=== PATIENT | female | born 1985 | race American Indian/Alaskan Native ===

== ENCOUNTER 2018-07-29 23:10 | Emergency (ER) | payer MEDICAID ==
[2018-07-29 23:53] VITALS: BP 133/89
[2018-07-30] MEDS ORDERED: TRIMOX PO ONE (01:01)
[2018-07-30] MEDS ORDERED: ULTRAM PO ONE (01:01)
--- NOTE | 2018-07-30 01:07 | Emergency Department Report ---
ED ENT HPI - General Chief complaint: Dental/Oral Stated complaint: TOOTH PAIN Time Seen by Provider: 07/30/18 00:58 Source: patient Mode of arrival: Ambulatory Limitations: No Limitations - History of Present Illness Initial comments: Patient's 33-year-old female presents with dental caries acute on chronic complains of 5/ 10 to take for the last 3 days as doing, 1 week from now there is no facial swelling or gum swelling no difficulty eating and throat ear pain symptoms are exacerbated by cold stimuli symptoms are relieved by Ultram/ ibuprofen complaint: tooth pain Onset/Timin -: days(s) Location: tooth # (10) Severity: moderate Severity scale (0 -10): 5 Quality: aching Consistency: constant Improves with: none Worsens with: eating, other (hot and cold stimuli ) Context- Dental: history of dental caries, poor dental care Associated Symptoms: toothache - Related Data Home Medications Medication Instructions Recorded Confirmed Last Taken oxyCODONE /ACETAMINOPHEN [Percocet 2 tab PO TID PRN 11/29/15 11/29/15 11/28/15 5/325] 2330 traMADol [Ultram] 50 mg PO TID PRN 11/29/15 11/29/15 11/28/15 2330 Previous Rx's Medication Instructions Recorded Last Taken Type Amoxicillin [Trimox CAP] 500 mg PO Q8H 10 Days #30 capsule 07/30/18 Unknown Rx Chlorhexidine Mouthwash [Peridex] 15 ml MM BID #1 bottle 07/30/18 Unknown Rx traMADol [Ultram] 50 mg PO Q6HR PRN #12 tablet 07/30/18 Unknown Rx Allergies Allergy/AdvReac Type Severity Reaction Status Date / Time sulfamethoxazole AdvReac Unknown Verified 10/31/15 23:01 [From Bactrim] trimethoprim [From Bactrim] AdvReac Unknown Verified 10/31/15 23:01 ED Dental HPI - General Chief complaint: Dental/Oral Stated complaint: TOOTH PAIN Time Seen by Provider: 07/30/18 00:58 Source: patient Mode of arrival: Ambulatory Limitations: No Limitations - Related Data Home Medications Medication Instructions Recorded Confirmed Last Taken oxyCODONE /ACETAMINOPHEN [Percocet 2 tab PO TID PRN 11/29/15 11/29/15 11/28/15 5/325] 2330 traMADol [Ultram] 50 mg PO TID PRN 05/24/16 05/24/16 05/23/16 2330 Previous Rx's Medication Instructions Recorded Last Taken Type Amoxicillin [Trimox CAP] 500 mg PO Q8H 10 Days #30 capsule 07/30/18 Unknown Rx Chlorhexidine Mouthwash [Peridex] 15 ml MM BID #1 bottle 07/30/18 Unknown Rx traMADol [Ultram] 50 mg PO Q6HR PRN #12 tablet 07/30/18 Unknown Rx Allergies Allergy/AdvReac Type Severity Reaction Status Date / Time sulfamethoxazole AdvReac Unknown Verified 10/31/15 23:01 [From Bactrim] trimethoprim [From Bactrim] AdvReac Unknown Verified 10/31/15 23:01 ED Review of Systems ROS: Stated complaint: TOOTH PAIN Other details as noted in HPI Constitutional: denies: chills, fever Eyes: denies: eye pain, eye discharge, vision change ENT: dental pain Respiratory: denies: cough, shortness of breath, wheezing Cardiovascular: denies: chest pain, palpitations Endocrine: no symptoms reported Gastrointestinal: denies: abdominal pain, nausea, diarrhea Genitourinary: denies: urgency, dysuria, discharge Musculoskeletal: denies: back pain, joint swelling, arthralgia Skin: denies: rash, lesions Neurological: denies: headache, weakness, paresthesias Psychiatric: denies: anxiety, depression Hematological/Lymphatic: denies: easy bleeding, easy bruising ED Past Medical Hx - Past Medical History Hx Hypertension: No Hx Diabetes: No Hx Deep Vein Thrombosis: No Hx Renal Disease: No Hx Sickle Cell Disease: No Hx Seizures: Yes (a couple of years ago) Hx Psychiatric Treatment: Yes (ANXIETY) Hx Asthma: No Hx HIV: No Additional medical history: endometriosis, ovarian cysts, fibroids - Surgical History Additional Surgical History: uterine laproscopy - Social History Smoking Status: Former Smoker - Medications Home Medications: Home Medications Medication Instructions Recorded Confirmed Last Taken Type oxyCODONE /ACETAMINOPHEN [Percocet 2 tab PO TID PRN 11/29/15 11/29/15 11/28/15 History 5/325] 2330 traMADol [Ultram] 50 mg PO TID PRN 11/29/15 11/29/15 11/28/15 History 2330 Amoxicillin [Trimox CAP] 500 mg PO Q8H 10 Days #30 capsule 07/30/18 Unknown Rx Chlorhexidine Mouthwash [Peridex] 15 ml MM BID #1 bottle 07/30/18 Unknown Rx traMADol [Ultram] 50 mg PO Q6HR PRN #12 tablet 07/30/18 Unknown Rx ED Physical Exam - General Limitations: No Limitations General appearance: alert, in no apparent distress - Head Head exam: Present: atraumatic, normocephalic - Eye Eye exam: Present: normal appearance - ENT ENT exam: Present: mucous membranes moist, TM's normal bilaterally, normal external ear exam - Expanded ENT Exam Expanded Ear exam: Present: normal external inspection Mouth exam: Absent: trismus Teeth exam: Present: dental caries, dental tenderness # (10) Throat exam: Positive: normal inspection, other (uvula midline no swelling no stridor ). Negative: tonsillar erythema, tonsillomegaly, tonsillar exudate, R peritonsillar mass, L peritonsillar mass - Neck Neck exam: Present: normal inspection, full ROM. Absent: tenderness, meningismus, lymphadenopathy, thyromegaly - Respiratory Respiratory exam: Present: normal lung sounds bilaterally. Absent: respiratory distress, wheezes, stridor, chest wall tenderness - Cardiovascular Cardiovascular Exam: Present: regular rate, normal rhythm. Absent: systolic murmur, diastolic murmur, rubs, gallop - GI/Abdominal GI/Abdominal exam: Present: soft, normal bowel sounds. Absent: tenderness, rigid, bruit, hernia - Rectal Rectal exam: Present: deferred - Extremities Exam Extremities exam: Present: normal inspection - Back Exam Back exam: Present: normal inspection, full ROM - Neurological Exam Neurological exam: Present: alert, oriented X3, normal gait - Psychiatric Psychiatric exam: Present: normal affect, normal mood - Skin Skin exam: Present: warm, dry, intact, normal color. Absent: rash ED Course Vital Signs 07/29/18 07/30/18 23:51 00:26 Temperature 98.1 F 98.7 F Pulse Rate 84 80 Respiratory 16 18 Rate Blood Pressure 133/89 133/89 O2 Sat by Pulse 100 99 Oximetry ED Medical Decision Making - Medical Decision Making these are infected dental carries no trismus no facial or gum swelling no fever or chills no throat or ear pain plan: peridex, amoxicillin, ultram follow up with dentist in 2-3 days, pt verbalized agreement and understanding of discharge plan. Critical care attestation.: If time is entered above; I have spent that time in minutes in the direct care of this critically ill patient, excluding procedure time. ED Disposition Clinical Impression: Infected dental caries Disposition: DC-01 TO HOME OR SELFCARE Is pt being admited?: No Does the pt Need Aspirin: No Condition: Stable Instructions: Dental Caries (ED) Prescriptions: Amoxicillin [Trimox CAP] 500 mg PO Q8H 10 Days #30 capsule Chlorhexidine Mouthwash [Peridex] 15 ml MM BID #1 bottle traMADol [Ultram] 50 mg PO Q6HR PRN #12 tablet PRN Reason: Pain Referrals: [facility] [Outside] - 3-5 Days Forms: Work/School Release Form(ED) Time of Disposition: 01:09
== END 2018-07-30 01:19 | disposition home or self-care (01) ==
LOC: ED 23:10
DX: K02.9 Dental caries, unspecified (principal); Z87.891 Personal history of nicotine dependence
CPT/HCPCS: 99282

== ENCOUNTER 2018-08-25 22:30 | Emergency (ER) | payer MEDICAID ==
--- NOTE | 2018-08-26 00:42 | XRay Report ---
FINAL REPORT PROCEDURE: XR TOE(S) 2+V LT TECHNIQUE: LEFT 5th toe radiographs, including AP, oblique and lateral views. HISTORY: pain COMPARISON: No prior studies are available for comparison. FINDINGS: Fracture(s) and/or Dislocation(s): There is a fracture of the midportion of the 5th proximal phalanx. Joint space(s): Normal. Soft tissues: There is soft tissue swelling of the 5th digit. Bone mineralization: Normal. Foreign bodies: None. IMPRESSION: Fracture of the 5th proximal phalanx. There is no joint dislocation. There is soft tissue swelling of the 5th digit.
[2018-08-26 01:28] LABS: Bacteria,Urine 2+ /HPF (Negative); Bilirubin,Urine NEG (Negative); Blood,Urine NEG (Negative); Color,Urine Yellow (Yellow); Hyaline Casts,Urine 1 /LPF; Mucus,Urine FEW /HPF; Urobilinogen,Urine < 2.0 mg/dL (<2.0)
[2018-08-26 01:30] LABS: HCG Qualitative,Urine Negative (Negative)
[2018-08-26 01:31] LABS: Amorphous Crystals,Urine 1+
--- NOTE | 2018-08-26 01:48 | Emergency Department Report ---
ED Lower Extremity HPI - General Chief Complaint: Extremity Injury, Lower Stated Complaint: L FOOT PAIN Source: patient Mode of arrival: Ambulatory Limitations: No Limitations - History of Present Illness Initial Comments: This is a 33-year-old -Turkish female who presents with pain to left fifth digit from a injury while at home today. Patient states she accidentally hit her toe against a metal bed rail this morning. She is now complaining of sharp pain with movement and weightbearing. She is currently taking Motrin with no improvement of symptoms. Patient is also requesting STD screening and. She reports vaginal discharge for 2 days. States she had intercourse with her partner one week ago. She denies vaginal bleeding, frequency, urgency, dysuria, paresthesia, pelvic pain, or low back pain, weakness, numbness or tingling. MD Complaint: foot injury (left fifth proximal digit) -: This morning Injury: Toes: Left, Right (fifth proximal ) Type of Injury: blunt Place: home Severity: severe Severity scale (0 -10): 10 Improves With: rest Worsens With: weight bearing, movement, palpation Context: direct blow Associated Symptoms: able to partially bear weight, ambulatory Treatments Prior to Arrival: cold therapy, NSAIDS - Related Data Home Medications Medication Instructions Recorded Confirmed Last Taken oxyCODONE /ACETAMINOPHEN [Percocet 2 tab PO TID PRN 11/29/15 11/29/15 11/28/15 5/325] 2330 traMADol [Ultram] 50 mg PO TID PRN 11/29/15 11/29/15 11/28/15 2330 Previous Rx's Medication Instructions Recorded Last Taken Type Amoxicillin [Trimox CAP] 500 mg PO Q8H 10 Days #30 capsule 07/30/18 Unknown Rx Chlorhexidine Mouthwash [Peridex] 15 ml MM BID #1 bottle 07/30/18 Unknown Rx traMADol [Ultram] 50 mg PO Q6HR PRN #12 tablet 07/30/18 Unknown Rx Ibuprofen [Motrin 800 MG tab] 800 mg PO Q8HR PRN #15 tablet 08/26/18 Unknown Rx metroNIDAZOLE [Metronidazole] 500 mg PO BID #14 tablet 08/26/18 Unknown Rx Allergies Allergy/AdvReac Type Severity Reaction Status Date / Time sulfamethoxazole AdvReac Unknown Verified 10/31/15 23:01 [From Bactrim] trimethoprim [From Bactrim] AdvReac Unknown Verified 10/31/15 23:01 ED Review of Systems ROS: Stated complaint: L FOOT PAIN Other details as noted in HPI Constitutional: denies: chills, fever Respiratory: denies: cough, shortness of breath, wheezing Cardiovascular: denies: chest pain, palpitations Gastrointestinal: denies: abdominal pain, nausea, diarrhea Genitourinary: discharge. denies: urgency, dysuria Musculoskeletal: arthralgia (5th digit pain). denies: back pain, joint swelling Skin: denies: rash, lesions Neurological: denies: headache, weakness, paresthesias Psychiatric: denies: anxiety, depression ED Past Medical Hx - Past Medical History Previous Medical History?: Yes Hx Hypertension: No Hx Diabetes: No Hx Deep Vein Thrombosis: No Hx Renal Disease: No Hx Sickle Cell Disease: No Hx Seizures: Yes (a couple of years ago) Hx Psychiatric Treatment: Yes (ANXIETY) Hx Asthma: No Hx HIV: No Additional medical history: endometriosis, ovarian cysts, fibroids - Surgical History Past Surgical History?: Yes Additional Surgical History: uterine laproscopy, tubal ligation - Social History Smoking Status: Never Smoker Substance Use Type: None - Medications Home Medications: Home Medications Medication Instructions Recorded Confirmed Last Taken Type oxyCODONE /ACETAMINOPHEN [Percocet 2 tab PO TID PRN 11/29/15 11/29/15 11/28/15 History 5/325] 2330 traMADol [Ultram] 50 mg PO TID PRN 11/29/15 11/29/15 11/28/15 History 2330 Amoxicillin [Trimox CAP] 500 mg PO Q8H 10 Days #30 capsule 07/30/18 Unknown Rx Chlorhexidine Mouthwash [Peridex] 15 ml MM BID #1 bottle 07/30/18 Unknown Rx traMADol [Ultram] 50 mg PO Q6HR PRN #12 tablet 07/30/18 Unknown Rx Ibuprofen [Motrin 800 MG tab] 800 mg PO Q8HR PRN #15 tablet 08/26/18 Unknown Rx metroNIDAZOLE [Metronidazole] 500 mg PO BID #14 tablet 08/26/18 Unknown Rx ED Physical Exam - General Limitations: No Limitations General appearance: alert, in no apparent distress - Respiratory Respiratory exam: Present: normal lung sounds bilaterally. Absent: respiratory distress - Cardiovascular Cardiovascular Exam: Present: regular rate, normal rhythm. Absent: systolic murmur, diastolic murmur, rubs, gallop - GI/Abdominal GI/Abdominal exam: Present: soft, normal bowel sounds - Expanded Lower Extremity Exam Left Hip exam: Present: normal inspection, full ROM Upper Leg exam: Present: normal inspection, full ROM Knee exam: Present: normal inspection, full ROM Lower Leg exam: Present: normal inspection, full ROM Ankle exam: Present: normal inspection, full ROM Foot/Toe exam: Present: normal inspection, tenderness, tenderness at base of 5th metatarsal. Absent: full ROM, swelling, abrasion, laceration, ecchymosis, deformity, crepidus, dislocation, erythema, amputation, puncture wound, foreign body, calcaneal tenderness Neuro vascular tendon exam: Present: no vascular compromise Gait: Positive: observed and limited by pain - Neurological Exam Neurological exam: Present: alert, oriented X3, normal gait - Psychiatric Psychiatric exam: Present: normal affect, normal mood - Skin Skin exam: Present: warm, dry, intact, normal color. Absent: rash ED Course Vital Signs 08/25/18 08/26/18 23:48 02:01 Temperature 98.4 F 98.7 F Pulse Rate 77 75 Respiratory 18 16 Rate Blood Pressure 159/103 Blood Pressure 125/91 [Left] O2 Sat by Pulse 100 99 Oximetry ED Lower Extremity MDM - Radiology Data Radiology results: report reviewed X-ray of left toes impression: Fracture of fifth proximal phalanx. There is no joint dislocation. There is soft tissue swelling of the fifth digit. - Medical Decision Making Patient was examined by me. Vitals are normal and patient is in no acute distress. Obtained a urinalysis, urine hCG, an x-ray of the left toes. Fracture of fifth proximal phalanx. There is no joint dislocation. There is soft tissue swelling of the fifth digit. Patient informed of results. A postop shoe was applied to left foot. Start ibuprofen for pain. Review of the [place] [employer] and patient recently received tramadol RX on 08/23/18, 08/18/18, & 08/15/18. The following message found on website: Please note that this person has received controlled substances prescriptions written by 22 prescribers and had them filled at 13 pharmacies during the past 3 months.This equals or exceeds the threshold of 5 prescribers and 5 pharmacies and while there may be a valid reason for this, it also may be indicative of the practice of prescriber and pharmacy shopping. Patient was empirically treated for STD exposure with Rocephin and azithromycin. Start metronidazole 500 mg by mouth twice a day 7 days. Referral to orthopedic surgeon for continued care. Plan discussed with patient to discharge home and treat outpatient. He agrees with ER plan. Patient discharged home in stable condition. Follow up with PCP in 2-3 days. Critical care attestation.: If time is entered above; I have spent that time in minutes in the direct care of this critically ill patient, excluding procedure time. ED Disposition Clinical Impression: Pain in toe of left foot, STD exposure Fracture of toe of left foot Qualifiers: Encounter type: initial encounter Toe: lesser toe Fracture type: closed Phalanx: proximal Fracture alignment: nondisplaced Qualified Code(s): S92.515A - Nondisplaced fracture of proximal phalanx of left lesser toe(s), initial encounter for closed fracture Disposition: TO HOME OR SELFCARE Is pt being admited?: No Does the pt Need Aspirin: No Condition: Stable Instructions: Sexually Transmitted Diseases (ED), Safe Sex (ED), Toe Fracture (ED), Arthralgia (ED) Additional Instructions: Avoid weight bearing to left lower extremity. Take pain medication every 6-8 hours as needed for pain. Follow-up with the orthopedic surgeon from referrals in 2-3 days. Follow up with [facility] for for STD screening. Avoid drinking alcohol while taking antibiotics and for 24 hours after completion. Continue safe sexual intercourse. Follow up with Primary Care Provider or health department. Prescriptions: Ibuprofen [Motrin 800 MG tab] 800 mg PO Q8HR PRN #15 tablet PRN Reason: Pain , Severe (7-10) metroNIDAZOLE [Metronidazole] 500 mg PO BID #14 tablet Referrals: BRIJESH MARTINS MD [Primary Care Provider] - 3-5 Days KIRIT GALICIA MD [Staff Physician] - 3-5 Days [facility] [Outside] - 3-5 Days Time of Disposition: 02:04
[2018-08-26] MEDS ORDERED: ROCEPHIN IM ONE (01:54)
[2018-08-26] MEDS ORDERED: XYLOCAINE 1% MPF 5 mL INFILTRATI ONE (01:54)
[2018-08-26] MEDS ORDERED: ZITHROMAX PO ONE (01:54)
[2018-08-26] MEDS ORDERED: IBUPROFEN PO ONE ×2 (01:57→01:59)
[2018-08-26] MEDS ORDERED: ROCEPHIN ONE (01:57)
[2018-08-26] MEDS ORDERED: TYLENOL ONE (01:57)
[2018-08-26] MEDS ORDERED: TYLENOL PO ONE (01:59)
[2018-08-26 02:02] VITALS: BP 125/91
== END 2018-08-26 02:52 | disposition home or self-care (01) ==
LOC: ED 22:30
DX: S92.515A Nondisplaced fracture of proximal phalanx of left lesser toe(s), initial encounter for closed fracture (principal); Z20.2 Contact with and (suspected) exposure to infections with a predominantly sexual mode of transmission; F41.9 Anxiety disorder, unspecified; Z88.2 Allergy status to sulfonamides; W22.8XXA Striking against or struck by other objects, initial encounter; Y93.89 Activity, other specified; Y99.8 Other external cause status; Y92.89 Other specified places as the place of occurrence of the external cause
CPT/HCPCS: 73660; 81001; 81025; 96372; 99284; J0696

== ENCOUNTER 2018-09-22 23:34 | Emergency (ER) | payer MEDICAID ==
[2018-09-23 01:01] VITALS: BP 130/71
[2018-09-23] MEDS ORDERED: ULTRAM PO ONE (05:28)
--- NOTE | 2018-09-23 05:34 | Emergency Department Report ---
ED Lower Extremity HPI - General Chief Complaint: Fall Stated Complaint: LOWER BACK PAIN/LEFT FOOT PAIN FROM FALL Time Seen by Provider: 09/23/18 05:28 Source: patient Mode of arrival: Ambulatory Limitations: No Limitations - History of Present Illness Initial Comments: Patient is a 33-year-old -[place] female who presents with a metatarsal fracture 3 weeks ago presents today for related pain the same as she is out of pain medication and will not have reduction for another week this followed by ambulance orthopedic services could not get an appointment has been no new fall or injury or trauma pain is described as for routine aching exacerbated by prolonged standing or walking patient is mature to ED tonight with regular she is not using orthopedic shoe MD Complaint: foot injury Onset/Timin -: week(s) Injury: Foot: Left Type of Injury: blunt Place: home Severity: moderate Severity scale (0 -10): 5 Improves With: nothing Worsens With: weight bearing, movement, palpation Context: fall Associated Symptoms: tingling, ambulatory - Related Data Home Medications Medication Instructions Recorded Confirmed Last Taken oxyCODONE /ACETAMINOPHEN [Percocet 2 tab PO TID PRN 11/29/15 11/29/15 11/28/15 5/325] 2330 traMADol [Ultram] 50 mg PO TID PRN 11/29/15 11/29/15 11/28/15 2330 Previous Rx's Medication Instructions Recorded Last Taken Type Amoxicillin [Trimox CAP] 500 mg PO Q8H 10 Days #30 capsule 07/30/18 Unknown Rx Chlorhexidine Mouthwash [Peridex] 15 ml MM BID #1 bottle 07/30/18 Unknown Rx traMADol [Ultram] 50 mg PO Q6HR PRN #12 tablet 07/30/18 Unknown Rx Ibuprofen [Motrin 800 MG tab] 800 mg PO Q8HR PRN #15 tablet 08/26/18 Unknown Rx metroNIDAZOLE [Metronidazole] 500 mg PO BID #14 tablet 08/26/18 Unknown Rx Tramadol HCl [Ultram] 50 mg PO Q6H PRN #12 tablet 09/23/18 Unknown Rx Allergies Allergy/AdvReac Type Severity Reaction Status Date / Time sulfamethoxazole AdvReac Vomiting Verified 09/22/18 23:38 [From Bactrim] trimethoprim [From Bactrim] AdvReac Vomiting Verified 09/22/18 23:38 ED Review of Systems ROS: Stated complaint: LOWER BACK PAIN/LEFT FOOT PAIN FROM FALL Other details as noted in HPI Constitutional: denies: chills, fever Eyes: denies: eye pain, eye discharge, vision change ENT: denies: ear pain, throat pain Respiratory: denies: cough, shortness of breath, wheezing Cardiovascular: denies: chest pain, palpitations Endocrine: no symptoms reported Gastrointestinal: denies: abdominal pain, nausea, diarrhea Genitourinary: denies: urgency, dysuria, discharge Musculoskeletal: joint swelling. denies: back pain, arthralgia Skin: denies: rash, lesions Neurological: denies: headache, weakness, paresthesias Psychiatric: denies: anxiety, depression Hematological/Lymphatic: denies: easy bleeding, easy bruising ED Past Medical Hx - Past Medical History Previous Medical History?: Yes Hx Hypertension: No Hx Diabetes: No Hx Deep Vein Thrombosis: No Hx Renal Disease: No Hx Sickle Cell Disease: No Hx Seizures: Yes (a couple of years ago) Hx Psychiatric Treatment: Yes (ANXIETY) Hx Asthma: No Hx HIV: No Additional medical history: endometriosis, ovarian cysts, fibroids, mass to buttocks - Surgical History Past Surgical History?: Yes Additional Surgical History: uterine laproscopy, tubal ligation. x2 - Social History Smoking Status: Never Smoker Substance Use Type: None - Medications Home Medications: Home Medications Medication Instructions Recorded Confirmed Last Taken Type oxyCODONE /ACETAMINOPHEN [Percocet 2 tab PO TID PRN 11/29/15 11/29/15 11/28/15 History 5/325] 2330 traMADol [Ultram] 50 mg PO TID PRN 11/29/15 11/29/15 11/28/15 History 2330 Amoxicillin [Trimox CAP] 500 mg PO Q8H 10 Days #30 capsule 07/30/18 Unknown Rx Chlorhexidine Mouthwash [Peridex] 15 ml MM BID #1 bottle 07/30/18 Unknown Rx traMADol [Ultram] 50 mg PO Q6HR PRN #12 tablet 07/30/18 Unknown Rx Ibuprofen [Motrin 800 MG tab] 800 mg PO Q8HR PRN #15 tablet 08/26/18 Unknown Rx metroNIDAZOLE [Metronidazole] 500 mg PO BID #14 tablet 08/26/18 Unknown Rx Tramadol HCl [Ultram] 50 mg PO Q6H PRN #12 tablet 09/23/18 Unknown Rx ED Physical Exam - General Limitations: No Limitations General appearance: alert, in no apparent distress - Head Head exam: Present: atraumatic, normocephalic - Eye Eye exam: Present: normal appearance - ENT ENT exam: Present: mucous membranes moist - Respiratory Respiratory exam: Present: normal lung sounds bilaterally, wheezes. Absent: respiratory distress, stridor, chest wall tenderness - Cardiovascular Cardiovascular Exam: Present: regular rate, normal rhythm. Absent: systolic murmur, diastolic murmur, rubs, gallop - GI/Abdominal GI/Abdominal exam: Present: soft, normal bowel sounds - Rectal Rectal exam: Present: deferred - Extremities Exam Extremities exam: Present: normal inspection, tenderness, normal capillary refill. Absent: pedal edema, joint swelling, calf tenderness - Expanded Lower Extremity Exam Left Foot/Toe exam: Present: full ROM, tenderness. Absent: swelling, abrasion, laceration, ecchymosis, deformity, crepidus, dislocation, erythema, amputation, puncture wound, foreign body, calcaneal tenderness, tenderness at base of 5th metatarsal, nail avulsion, subungual hematoma Neuro vascular tendon exam: Present: abnormal cap refill Gait: Positive: observed and normal - Back Exam Back exam: Present: normal inspection, full ROM. Absent: tenderness, CVA tenderness (R), CVA tenderness (L), muscle spasm, paraspinal tenderness, vertebral tenderness, rash noted - Neurological Exam Neurological exam: Present: alert, oriented X3, CN II-XII intact, normal gait, reflexes normal - Psychiatric Psychiatric exam: Present: normal affect, normal mood - Skin Skin exam: Present: warm, dry, intact, normal color. Absent: rash ED Course Vital Signs 09/23/18 01:00 Temperature 98.7 F Pulse Rate 85 Respiratory 18 Rate Blood Pressure 130/71 O2 Sat by Pulse 97 Oximetry ED Lower Extremity MDM - Medical Decision Making Patient significant pain medication on and under fluoroscopy, there is no abnormality patient's relative steady gait short-term burst of tramadol patient will follow up with the surgery next week for repair as directed patient verbalized agreement and understanding of discharge plan DC'd home in stable condition at this time Critical care attestation.: If time is entered above; I have spent that time in minutes in the direct care of this critically ill patient, excluding procedure time. ED Disposition Clinical Impression: Foot pain Qualifiers: Laterality: left Qualified Code(s): M79.672 - Pain in left foot Disposition: DC-01 TO HOME OR SELFCARE Is pt being admited?: No Does the pt Need Aspirin: No Condition: Stable Additional Instructions: follow up with [facility] as scheduled next week , return to ed if symptoms worsen Prescriptions: Tramadol HCl [Ultram] 50 mg PO Q6H PRN #12 tablet PRN Reason: pain Referrals: JODY MARK MD [Primary Care Provider] - 3-5 Days Forms: Work/School Release Form(ED) Time of Disposition: 05:38
== END 2018-09-23 05:45 | disposition home or self-care (01) ==
LOC: ED 23:34
DX: M79.672 Pain in left foot (principal); R20.2 Paresthesia of skin
CPT/HCPCS: 99282

== ENCOUNTER 2018-10-26 17:07 | Emergency (ER) | payer MEDICAID ==
[2018-10-26 17:25] VITALS: BP 147/90
--- NOTE | 2018-10-26 17:32 | Emergency Department Report ---
Blank Doc - Documentation Documentation: This is a 33-year-old female that presents with left toes pain. Stated injured it a couple of days ago. Patient also stated has anxiety and is requesting for ativan. This initial assessment/diagnostic orders/clinical plan/treatment(s) is/are subject to change based on patient's health status, clinical progression and re- assessment by fellow clinical providers in the ED. Further treatment and workup at subsequent clinical providers discretion. Patient/guardians urged not to elope from the ED as their condition may be serious if not clinically assessed and managed. 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
[2018-10-26] MEDS ORDERED: NACL 0.9% 1000 ML 1,000 ML ONE (21:16)
== END 2018-10-26 22:58 | disposition left against medical advice (07) ==
LOC: ED 17:07
DX: M79.672 Pain in left foot (principal); Z53.21 Procedure and treatment not carried out due to patient leaving prior to being seen by health care provider
CPT/HCPCS: J7030

== ENCOUNTER 2018-11-03 14:22 | Emergency (ER) | payer MEDICAID ==
--- NOTE | 2018-11-03 15:39 | Emergency Department Report ---
Chief Complaint: Extremity Injury, Lower Stated Complaint: LEFT FOOT PAIN Time Seen by Provider: 11/03/18 15:37 - HPI History of Present Illness: pt presents to the ED with c/o left foot pain a week ago states she stepped the wrong way states she now has pain to the 2nd and 3rd digit and edema pt states that she broke her left pinky toe a month ago has on ortho shoe her orthopedic doctor is at [facility] screening note: Focused history and physical exam performed. Due to findings the following was ordered: XR left foot ED Disposition for [facility] Condition: Stable
[2018-11-03 15:40] VITALS: BP 146/100
--- NOTE | 2018-11-03 16:22 | XRay Report ---
PROCEDURE: Left foot. TECHNIQUE: AP and lateral views. HISTORY: left 2nd and 3rd digit pain COMPARISONS: None. FINDINGS: There are acute fractures through the proximal phalanges of the third, fourth and fifth toes. There i s approximately 1 mm of lateral displacement in the third toe. There is approximately 2 mm of lateral displacement in the fourth toe. There is no displacement in the fifth toe. The alignment is nearly a natomic. IMPRESSION: Acute fractures of the third, fourth and fifth toes. This document is electronically signed by Juan Diego An MD., November 03 2018 04:20:38 PM ET
--- NOTE | 2018-11-03 17:46 | Emergency Department Report ---
ED Lower Extremity HPI - General Chief Complaint: Extremity Injury, Lower Stated Complaint: LEFT FOOT PAIN Time Seen by Provider: 11/03/18 15:37 Source: patient Mode of arrival: Ambulatory Limitations: No Limitations - History of Present Illness Initial Comments: 33 0 -[place] female presents to the emergency room for pain to 2 toes on her left foot for a week. Patient endorsed that she had a fifth toe fracture 1 month ago. Patient reports that she's been on ibuprofen and Tylenol. Patient really injured her left foot. Patient denies any other past medical history she reports she takes nothing for any chronic issues. She has no known drug allergies. Complaint: foot injury -: week(s) (1) Injury: Toes: Left (3,4,5) Type of Injury: hyperflexion Place: home Severity scale (0 -10): 8 Context: jumping Treatments Prior to Arrival: NSAIDS, other (Ultram) - Related Data Home Medications Medication Instructions Recorded Confirmed Last Taken oxyCODONE /ACETAMINOPHEN [Percocet 2 tab PO TID PRN 11/29/15 11/29/15 11/28/15 5/325] 2330 traMADol [Ultram] 50 mg PO TID PRN 11/29/15 11/29/15 11/28/15 2330 Previous Rx's Medication Instructions Recorded Last Taken Type Amoxicillin [Trimox CAP] 500 mg PO Q8H 10 Days #30 capsule 07/30/18 Unknown Rx Chlorhexidine Mouthwash [Peridex] 15 ml MM BID #1 bottle 07/30/18 Unknown Rx traMADol [Ultram] 50 mg PO Q6HR PRN #12 tablet 07/30/18 Unknown Rx Ibuprofen [Motrin 800 MG tab] 800 mg PO Q8HR PRN #15 tablet 08/26/18 Unknown Rx metroNIDAZOLE [Metronidazole] 500 mg PO BID #14 tablet 08/26/18 Unknown Rx Tramadol HCl [Ultram] 50 mg PO Q6H PRN #12 tablet 09/23/18 Unknown Rx Ibuprofen [Motrin 600 MG tab] 600 mg PO Q8H #30 tablet 11/03/18 Unknown Rx Allergies Allergy/AdvReac Type Severity Reaction Status Date / Time No Known Allergies Allergy Unverified 11/03/18 14:24 ED Review of Systems ROS: Stated complaint: LEFT FOOT PAIN Other details as noted in HPI Comment: All other systems reviewed and negative ED Past Medical Hx - Past Medical History Hx Hypertension: No Hx Diabetes: No Hx Deep Vein Thrombosis: No Hx Renal Disease: No Hx Sickle Cell Disease: No Hx Seizures: Yes (a couple of years ago) Hx Psychiatric Treatment: Yes (ANXIETY) Hx Asthma: No Hx HIV: No Additional medical history: endometriosis, ovarian cysts, fibroids, mass to buttocks - Surgical History Additional Surgical History: uterine laproscopy, tubal ligation. x2 - Social History Smoking Status: Never Smoker Substance Use Type: None - Medications Home Medications: Home Medications Medication Instructions Recorded Confirmed Last Taken Type oxyCODONE /ACETAMINOPHEN [Percocet 2 tab PO TID PRN 11/29/15 11/29/15 11/28/15 History 5/325] 2330 traMADol [Ultram] 50 mg PO TID PRN 11/29/15 11/29/15 11/28/15 History 2330 Amoxicillin [Trimox CAP] 500 mg PO Q8H 10 Days #30 capsule 07/30/18 Unknown Rx Chlorhexidine Mouthwash [Peridex] 15 ml MM BID #1 bottle 07/30/18 Unknown Rx traMADol [Ultram] 50 mg PO Q6HR PRN #12 tablet 07/30/18 Unknown Rx Ibuprofen [Motrin 800 MG tab] 800 mg PO Q8HR PRN #15 tablet 08/26/18 Unknown Rx metroNIDAZOLE [Metronidazole] 500 mg PO BID #14 tablet 08/26/18 Unknown Rx Tramadol HCl [Ultram] 50 mg PO Q6H PRN #12 tablet 09/23/18 Unknown Rx Ibuprofen [Motrin 600 MG tab] 600 mg PO Q8H #30 tablet 11/03/18 Unknown Rx ED Physical Exam - General Limitations: No Limitations General appearance: alert, in no apparent distress - Head Head exam: Present: atraumatic, normocephalic - Eye Eye exam: Present: normal appearance - ENT ENT exam: Present: mucous membranes moist - Expanded Lower Extremity Exam Left Hip exam: Present: normal inspection, full ROM Upper Leg exam: Present: normal inspection, full ROM Knee exam: Present: normal inspection, full ROM Lower Leg exam: Present: normal inspection, full ROM Ankle exam: Present: normal inspection, full ROM Foot/Toe exam: Present: tenderness, swelling, tenderness at base of 5th metatarsal Neuro vascular tendon exam: Present: no vascular compromise Gait: Positive: not tested/not observed - Back Exam Back exam: Present: normal inspection - Neurological Exam Neurological exam: Present: alert, oriented X3 - Psychiatric Psychiatric exam: Present: normal affect, normal mood - Skin Skin exam: Present: warm, dry, intact, normal color. Absent: rash ED Course Vital Signs 11/03/18 15:37 Temperature 98.5 F Pulse Rate 106 H Respiratory 18 Rate Blood Pressure 146/100 O2 Sat by Pulse 98 Oximetry ED Lower Extremity MDM - Radiology Data Radiology results: report reviewed Patient: LIBIA MILLIGAN MR #: [id number] : 1985 Acct:[id number] Age/Sex: 33 / F ADM Date: 11/03/18 Loc: ED Attending Dr: Ordering Physician: CRISS JACINTO Date of Service: 11/03/18 Procedure(s): XR foot 2V LT Accession Number(s): [id number] cc: CRISS JACINTO Fluoro Time In Minutes: PROCEDURE: Left foot. TECHNIQUE: AP and lateral views. HISTORY: left 2nd and 3rd digit pain COMPARISONS: None. FINDINGS: There are acute fractures through the proximal phalanges of the third, fourth and fifth toes. There is approximately 1 mm of lateral displacement in the third toe. There is approximately 2 mm of lateral displacement in the fourth toe. There is no displacement in the fifth toe. The alignment is nearly anatomic. IMPRESSION: Acute fractures of the third, fourth and fifth toes. This document is electronically signed by Juan Diego Garrett MD., November 03 2018 04:20:38 PM ET Transcribed By: MRM Dictated By: JUAN DIEGO GARRETT MD Electronically Authenticated By: JUAN DIEGO GARRETT MD Signed Date/Time: 11/03/18 1622 DD/ 1605 TD/TT: 11/03/18 1605 - Medical Decision Making Patient has been evaluated by this provider in fast track. Ibuprofen given for pain management. X-ray shows patient has fractures to the third fourth and fifth digit on her left foot. Patient came with a surgical boot and she will be lanre taped her toes and to follow-up with orthopedic provider. Critical care attestation.: If time is entered above; I have spent that time in minutes in the direct care of this critically ill patient, excluding procedure time. ED Disposition Clinical Impression: Fracture of fourth toe, left, closed Qualifiers: Encounter type: initial encounter Qualified Code(s): S92.502A - Displaced unspecified fracture of left lesser toe(s), initial encounter for closed fracture Fracture of toe of left foot Qualifiers: Encounter type: initial encounter Toe: lesser toe Fracture type: closed Phalan x: unspecified phalanx Fracture alignment: nondisplaced Qualified Code(s): S92.505A - Nondisplaced unspecified fracture of left lesser toe(s), initial encounter for closed fracture Disposition: TO HOME OR SELFCARE Is pt being admited?: No Does the pt Need Aspirin: No Condition: Stable Instructions: Toe Fracture (ED) Additional Instructions: Take Tylenol or ibuprofen for pain management. Referral to orthopedic provider. Prescriptions: Ibuprofen [Motrin 600 MG tab] 600 mg PO Q8H #30 tablet Referrals: SUZETTE SWANSON MD [Primary Care Provider] - 3-5 Days
[2018-11-03] MEDS ORDERED: IBUPROFEN PO ONE (17:53)
== END 2018-11-03 18:22 | disposition home or self-care (01) ==
LOC: ED 14:22
DX: S92.502A Displaced unspecified fracture of left lesser toe(s), initial encounter for closed fracture (principal); Z98.51 Tubal ligation status; X58.XXXA Exposure to other specified factors, initial encounter; Y93.39 Activity, other involving climbing, rappelling and jumping off; Y92.098 Other place in other non-institutional residence as the place of occurrence of the external cause; Y99.8 Other external cause status
CPT/HCPCS: 99283

== ENCOUNTER 2018-12-02 20:07 | Emergency (ER) | payer MEDICAID ==
[2018-12-03] MEDS ORDERED: TORADOL IM ONE ×2 (03:41→03:49)
[2018-12-03] MEDS ORDERED: NACL 0.9% 1000 ML 1,000 ML IV ONE (03:41)
[2018-12-03] MEDS ORDERED: ZOFRAN IV ONE (03:41)
[2018-12-03] MEDS ORDERED: ZOFRAN IM ONE (03:49)
[2018-12-03] MEDS ORDERED: ZOFRAN ODT PO ONE (03:55)
[2018-12-03] MEDS ORDERED: ULTRAM PO ONE (03:55)
--- NOTE | 2018-12-03 04:00 | Emergency Department Report ---
ED Abdominal Pain HPI - General Chief Complaint: Abdominal Pain Stated Complaint: PAIN IN PELVIC AREA Time Seen by Provider: 12/03/18 03:40 Source: patient Mode of arrival: Ambulatory Limitations: No Limitations - History of Present Illness Initial Comments: pt is a 33 y/o aaf with hx of fibroids, who presents for bilat lower abd pain , this a reccurring problem for patient schedule for fibroidectomy with [employer] in 2 weeks states she out of tramadol , which is rx for prn abdominal pain MD Complaint: abdominal pain Onset/Timin -: week(s) Location: LLQ, RLQ, suprapubic Radiation: LLQ, RLQ, suprapubic Migration to: no migration Severity: moderate Severity scale (0 -10): 5 Quality: cramping, aching Consistency: constant Improves With: medication, rest Worsens With: movement Associated Symptoms: nausea. denies: vomiting, diarrhea, fever, chills, constipation, dysuria, hematemesis, hematochezia, melena, hematuria - Related Data LMP Date: 11/25/18 Home Medications Medication Instructions Recorded Confirmed Last Taken oxyCODONE /ACETAMINOPHEN [Percocet 2 tab PO TID PRN 11/29/15 11/29/15 11/28/15 5/325] 2330 traMADol [Ultram] 50 mg PO TID PRN 11/29/15 11/29/15 11/28/15 2330 Previous Rx's Medication Instructions Recorded Last Taken Type Amoxicillin [Trimox CAP] 500 mg PO Q8H 10 Days #30 capsule 07/30/18 Unknown Rx Chlorhexidine Mouthwash [Peridex] 15 ml MM BID #1 bottle 07/30/18 Unknown Rx traMADol [Ultram] 50 mg PO Q6HR PRN #12 tablet 07/30/18 Unknown Rx Ibuprofen [Motrin 800 MG tab] 800 mg PO Q8HR PRN #15 tablet 08/26/18 Unknown Rx metroNIDAZOLE [Metronidazole] 500 mg PO BID #14 tablet 08/26/18 Unknown Rx Tramadol HCl [Ultram] 50 mg PO Q6H PRN #12 tablet 09/23/18 Unknown Rx Ibuprofen [Motrin 600 MG tab] 600 mg PO Q8H #30 tablet 11/03/18 Unknown Rx Ibuprofen [Motrin 800 MG tab] 800 mg PO Q8HR PRN #30 tablet 12/03/18 Unknown Rx traMADol [Ultram] 50 mg PO Q6HR PRN #12 tablet 12/03/18 Unknown Rx Allergies Allergy/AdvReac Type Severity Reaction Status Date / Time No Known Allergies Allergy Verified 12/02/18 20:10 ED Review of Systems ROS: Stated complaint: PAIN IN PELVIC AREA Other details as noted in HPI Constitutional: denies: chills, fever Eyes: denies: eye pain, eye discharge, vision change ENT: denies: ear pain, throat pain Respiratory: denies: cough, shortness of breath, wheezing Cardiovascular: denies: chest pain, palpitations Endocrine: no symptoms reported Gastrointestinal: nausea. denies: abdominal pain, vomiting, diarrhea, constipation, hematemesis, melena, hematochezia Genitourinary: denies: urgency, dysuria, discharge Musculoskeletal: denies: back pain, joint swelling, arthralgia Skin: denies: rash, lesions Neurological: denies: headache, weakness, paresthesias Psychiatric: denies: anxiety, depression Hematological/Lymphatic: denies: easy bleeding, easy bruising ED Past Medical Hx - Past Medical History Previous Medical History?: Yes Hx Hypertension: No Hx Diabetes: No Hx Deep Vein Thrombosis: No Hx Renal Disease: No Hx Sickle Cell Disease: No Hx Seizures: Yes (a couple of years ago) Hx Psychiatric Treatment: Yes (ANXIETY) Hx Asthma: No Hx HIV: No Additional medical history: endometriosis, ovarian cysts, fibroids, mass to buttocks - Surgical History Past Surgical History?: Yes Additional Surgical History: uterine laproscopy, tubal ligation. x2 - Social History Smoking Status: Never Smoker Substance Use Type: None - Medications Home Medications: Home Medications Medication Instructions Recorded Confirmed Last Taken Type oxyCODONE /ACETAMINOPHEN [Percocet 2 tab PO TID PRN 11/29/15 11/29/15 11/28/15 History 5/325] 2330 traMADol [Ultram] 50 mg PO TID PRN 11/29/15 11/29/15 11/28/15 History 2330 Amoxicillin [Trimox CAP] 500 mg PO Q8H 10 Days #30 capsule 07/30/18 Unknown Rx Chlorhexidine Mouthwash [Peridex] 15 ml MM BID #1 bottle 07/30/18 Unknown Rx traMADol [Ultram] 50 mg PO Q6HR PRN #12 tablet 07/30/18 Unknown Rx Ibuprofen [Motrin 800 MG tab] 800 mg PO Q8HR PRN #15 tablet 08/26/18 Unknown Rx metroNIDAZOLE [Metronidazole] 500 mg PO BID #14 tablet 08/26/18 Unknown Rx Tramadol HCl [Ultram] 50 mg PO Q6H PRN #12 tablet 09/23/18 Unknown Rx Ibuprofen [Motrin 600 MG tab] 600 mg PO Q8H #30 tablet 11/03/18 Unknown Rx Ibuprofen [Motrin 800 MG tab] 800 mg PO Q8HR PRN #30 tablet 12/03/18 Unknown Rx traMADol [Ultram] 50 mg PO Q6HR PRN #12 tablet 12/03/18 Unknown Rx ED Physical Exam - General Limitations: No Limitations General appearance: alert, in no apparent distress - Head Head exam: Present: atraumatic, normocephalic - Eye Eye exam: Present: normal appearance, PERRL, EOMI Pupils: Present: normal accommodation - ENT ENT exam: Present: mucous membranes moist - Neck Neck exam: Present: normal inspection - Respiratory Respiratory exam: Present: normal lung sounds bilaterally. Absent: respiratory distress, wheezes, stridor, chest wall tenderness - Cardiovascular Cardiovascular Exam: Present: regular rate, normal rhythm, normal heart sounds. Absent: systolic murmur, diastolic murmur, rubs, gallop - GI/Abdominal GI/Abdominal exam: Present: soft, normal bowel sounds. Absent: distended, tenderness, guarding, rebound, rigid, bruit, hernia - Rectal Rectal exam: Present: deferred - Extremities Exam Extremities exam: Present: normal inspection, full ROM, normal capillary refill. Absent: tenderness, pedal edema, joint swelling, calf tenderness - Back Exam Back exam: Present: normal inspection. Absent: full ROM, tenderness, CVA tenderness (R), CVA tenderness (L), muscle spasm, paraspinal tenderness, vertebral tenderness, other - Neurological Exam Neurological exam: Present: alert, oriented X3, CN II-XII intact, normal gait, reflexes normal - Psychiatric Psychiatric exam: Present: normal affect, normal mood ED Course Vital Signs 12/02/18 12/02/18 20:37 21:51 Temperature 97.3 F L 97.5 F L Pulse Rate 101 H 98 H Respiratory 18 18 Rate Blood Pressure 115/77 115/77 O2 Sat by Pulse 97 97 Oximetry ED Medical Decision Making - Medical Decision Making this is an acute exacerbation of chronic abd pain , pt scheduled fibrood removal on 19 of December with obgyn pt will keep appointment as schedule. pt will dc'd to home in stable condition at this time, ciaran level is now 4/10 Critical care attestation.: If time is entered above; I have spent that time in minutes in the direct care of this critically ill patient, excluding procedure time. ED Disposition Clinical Impression: Abdominal pain Qualifiers: Abdominal location: lower abdomen, unspecified Qualified Code(s): R10.30 - Lower abdominal pain, unspecified Fibroid uterus Qualifiers: Uterine leiomyoma location: intramural Qualified Code(s): D25.1 - Intramural leiomyoma of uterus Disposition: DC- TO HOME OR SELFCARE Is pt being admited?: No Does the pt Need Aspirin: No Condition: Stable Instructions: Abdominal Pain (ED), Uterine Fibroids (ED) Prescriptions: Ibuprofen [Motrin 800 MG tab] 800 mg PO Q8HR PRN #30 tablet PRN Reason: Pain , Severe (7-10) traMADol [Ultram] 50 mg PO Q6HR PRN #12 tablet PRN Reason: Pain Referrals: CLOTILDE CALVERT MD [Staff Physician] - 3-5 Days Forms: Work/School Release Form(ED) Time of Disposition: 04:18
[2018-12-03 04:27] VITALS: BP 103/73
== END 2018-12-03 04:26 | disposition home or self-care (01) ==
LOC: ED 20:07
DX: D25.1 Intramural leiomyoma of uterus (principal); F41.9 Anxiety disorder, unspecified
CPT/HCPCS: 99282; J1885; J2405; Q0162

== ENCOUNTER 2019-02-18 22:54 | Emergency (ER) | payer MEDICAID ==
--- NOTE | 2019-02-19 00:41 | Emergency Department Report ---
ED Female HPI - General Chief complaint: Abdominal Pain Stated complaint: PELVIC PAIN Time Seen by Provider: 02/19/19 00:01 Source: patient Mode of arrival: Ambulatory Limitations: No Limitations - History of Present Illness Initial comments: This is a 34-year-old female with a history of endometriosis and ovarian cyst presents to the ED complaining pelvic pain from her endometriosis. Patient states pain usually begins when she is about to start her menstrual cycle. Patient states she has an [employer]OURCES SUPERVISOR out of [facility] and recently just moved here so she does not have HUMAN RESOURCES SUPERVISOR on the side of [facility] yet MD Complaint: pelvic pain - Related Data Home Medications Medication Instructions Recorded Confirmed Last Taken oxyCODONE /ACETAMINOPHEN [Percocet 2 tab PO TID PRN 11/29/15 11/29/15 11/28/15 5/325] 2330 traMADol [Ultram] 50 mg PO TID PRN 11/29/15 11/29/15 11/28/15 2330 Previous Rx's Medication Instructions Recorded Last Taken Type Amoxicillin [Trimox CAP] 500 mg PO Q8H 10 Days #30 capsule 07/30/18 Unknown Rx Chlorhexidine Mouthwash [Peridex] 15 ml MM BID #1 bottle 07/30/18 Unknown Rx traMADol [Ultram] 50 mg PO Q6HR PRN #12 tablet 07/30/18 Unknown Rx metroNIDAZOLE [Metronidazole] 500 mg PO BID #14 tablet 08/26/18 Unknown Rx Tramadol HCl [Ultram] 50 mg PO Q6H PRN #12 tablet 09/23/18 Unknown Rx Ibuprofen [Motrin 600 MG tab] 600 mg PO Q8H #30 tablet 11/03/18 Unknown Rx Ibuprofen [Motrin 800 MG tab] 800 mg PO Q8HR PRN #30 tablet 12/03/18 Unknown Rx traMADol [Ultram] 50 mg PO Q6HR PRN #12 tablet 12/03/18 Unknown Rx Ibuprofen [Motrin 800 MG tab] 800 mg PO Q8HR PRN #15 tablet 02/19/19 Unknown Rx Allergies Allergy/AdvReac Type Severity Reaction Status Date / Time No Known Allergies Allergy Verified 12/02/18 20:10 ED Review of Systems ROS: Stated complaint: PELVIC PAIN Other details as noted in HPI Comment: All other systems reviewed and negative ED Past Medical Hx - Past Medical History Previous Medical History?: Yes Hx Hypertension: No Hx Diabetes: No Hx Deep Vein Thrombosis: No Hx Renal Disease: No Hx Sickle Cell Disease: No Hx Seizures: Yes (a couple of years ago) Hx Psychiatric Treatment: Yes (ANXIETY) Hx Asthma: No Hx HIV: No Additional medical history: endometriosis, ovarian cysts, fibroids, mass to buttocks - Surgical History Past Surgical History?: Yes Additional Surgical History: uterine laproscopy, tubal ligation. x2 - Social History Smoking Status: Never Smoker Substance Use Type: None - Medications Home Medications: Home Medications Medication Instructions Recorded Confirmed Last Taken Type oxyCODONE /ACETAMINOPHEN [Percocet 2 tab PO TID PRN 11/29/15 11/29/15 11/28/15 History 5/325] 2330 traMADol [Ultram] 50 mg PO TID PRN 11/29/15 11/29/15 11/28/15 History 2330 Amoxicillin [Trimox CAP] 500 mg PO Q8H 10 Days #30 capsule 07/30/18 Unknown Rx Chlorhexidine Mouthwash [Peridex] 15 ml MM BID #1 bottle 07/30/18 Unknown Rx traMADol [Ultram] 50 mg PO Q6HR PRN #12 tablet 07/30/18 Unknown Rx metroNIDAZOLE [Metronidazole] 500 mg PO BID #14 tablet 08/26/18 Unknown Rx Tramadol HCl [Ultram] 50 mg PO Q6H PRN #12 tablet 09/23/18 Unknown Rx Ibuprofen [Motrin 600 MG tab] 600 mg PO Q8H #30 tablet 11/03/18 Unknown Rx Ibuprofen [Motrin 800 MG tab] 800 mg PO Q8HR PRN #30 tablet 12/03/18 Unknown Rx traMADol [Ultram] 50 mg PO Q6HR PRN #12 tablet 12/03/18 Unknown Rx Ibuprofen [Motrin 800 MG tab] 800 mg PO Q8HR PRN #15 tablet 02/19/19 Unknown Rx ED Physical Exam - General Limitations: No Limitations General appearance: alert, in no apparent distress - Head Head exam: Present: atraumatic, normocephalic - Eye Eye exam: Present: normal appearance - ENT ENT exam: Present: mucous membranes moist - Neck Neck exam: Present: normal inspection - Respiratory Respiratory exam: Present: normal lung sounds bilaterally. Absent: respiratory distress - Cardiovascular Cardiovascular Exam: Present: regular rate, normal rhythm. Absent: systolic murmur, diastolic murmur, rubs, gallop - GI/Abdominal GI/Abdominal exam: Present: soft, normal bowel sounds - Extremities Exam Extremities exam: Present: normal inspection - Back Exam Back exam: Present: normal inspection - Neurological Exam Neurological exam: Present: alert, oriented X3 - Psychiatric Psychiatric exam: Present: normal affect, normal mood - Skin Skin exam: Present: warm, dry, intact, normal color. Absent: rash ED Course Vital Signs 02/18/19 23:29 Temperature 99.1 F Pulse Rate 104 H Respiratory 18 Rate Blood Pressure 118/69 O2 Sat by Pulse 99 Oximetry ED Medical Decision Making - Medical Decision Making This 34-year-old female who presents ED stating she has endometriosis and her endometriosis is flaring up this is about to start her cycle. Patient was nontender abdomen evaluation. Patient stating she is usually given tramadol or Percocet for her pain. I discussed the patient and I would not be giving her any opiate medication as prescription. Patient is given Motrin and follow-up with [employer]PER[employer]. After looking a patient on the [employer] website patient has had a recent prescription on 02/11/2019 for tramadol as well as a Percocet prescription in February 04 last month. Patient is drug seeker and opiate abuser. I would not be prescribing any opiate medication to palpation at this time Patient is in no acute distress all over during ED stay Critical care attestation.: If time is entered above; I have spent that time in minutes in the direct care of this critically ill patient, excluding procedure time. ED Disposition Clinical Impression: Endometriosis Disposition: DC-01 TO HOME OR SELFCARE Is pt being admited?: No Does the pt Need Aspirin: No Condition: Stable Instructions: Abdominal Pain (ED) Additional Instructions: Make sure to follow up with the primary care physician as discussed. Take all your medications as you've been prescribed. If you have any worsening symptoms or develop new symptoms please return to ED immediately. Prescriptions: Ibuprofen [Motrin 800 MG tab] 800 mg PO Q8HR PRN #15 tablet PRN Reason: Pain , Severe (7-10) Referrals: SUZETTE SWANSON MD [Primary Care Provider] - 3-5 Days Forms: Accompanied Note, Work/School Release Form(ED) Time of Disposition: 00:52
[2019-02-19] MEDS ORDERED: ULTRAM PO ONE (06:19)
[2019-02-19] MEDS ORDERED: IBUPROFEN PO ONE (06:19)
--- NOTE | 2019-02-19 06:24 | Emergency Department Report ---
HPI - General Chief Complaint: Abdominal Pain Time Seen by Provider: 02/19/19 00:01 - HPI HPI: Room 24 The patient is a 34-year-old female presenting with a chief complaint of lower abdominal pain, endometriosis pain. The patient states she has a history of endometriosis and for the past 2 days she's had a constant lower abdominal pain consistent with the soreness she gets prior to the onset of her menses. Patient denies history of fever, dysuria or hematuria. Patient is to nausea but denies vomiting. Patient gets her pain score 10/10. The patient states her last cycle occurred 01/19/2019. The patient states she does not have an RING SPINNER on "the side of [facility]"yet. The patient was seen earlier by a mid-level stated she wanted to see a physician Location: Lower abdomen Duration: [See above] Quality: Soreness Severity: [See above] Modifying factors: [see above] Context: [see above] Mode of transportation: [not driving] ED Past Medical Hx - Past Medical History Previous Medical History?: Yes Hx Seizures: Yes (a couple of years ago) Hx Psychiatric Treatment: Yes (ANXIETY) Additional medical history: endometriosis, ovarian cysts, fibroids, mass to buttocks - Surgical History Past Surgical History?: Yes Additional Surgical History: uterine laproscopy, tubal ligation. x2 - Family History Family history: no significant - Social History Smoking Status: Current Some Day Smoker (occasional) Substance Use Type: None (denies illicit drug use) - Medications Home Medications: Home Medications Medication Instructions Recorded Confirmed Last Taken Type oxyCODONE /ACETAMINOPHEN [Percocet 2 tab PO TID PRN 11/29/15 11/29/15 11/28/15 History 5/325] 2330 traMADol [Ultram] 50 mg PO TID PRN 11/29/15 11/29/15 11/28/15 History 2330 Amoxicillin [Trimox CAP] 500 mg PO Q8H 10 Days #30 capsule 07/30/18 Unknown Rx Chlorhexidine Mouthwash [Peridex] 15 ml MM BID #1 bottle 07/30/18 Unknown Rx traMADol [Ultram] 50 mg PO Q6HR PRN #12 tablet 07/30/18 Unknown Rx metroNIDAZOLE [Metronidazole] 500 mg PO BID #14 tablet 08/26/18 Unknown Rx Tramadol HCl [Ultram] 50 mg PO Q6H PRN #12 tablet 09/23/18 Unknown Rx Ibuprofen [Motrin 600 MG tab] 600 mg PO Q8H #30 tablet 11/03/18 Unknown Rx Ibuprofen [Motrin 800 MG tab] 800 mg PO Q8HR PRN #30 tablet 12/03/18 Unknown Rx traMADol [Ultram] 50 mg PO Q6HR PRN #12 tablet 12/03/18 Unknown Rx Ibuprofen [Motrin 800 MG tab] 800 mg PO Q8HR PRN #15 tablet 02/19/19 Unknown Rx traMADol [Ultram] 50 mg PO Q6HR PRN #10 tablet 02/19/19 Unknown Rx ED Review of Systems ROS: Stated complaint: PELVIC PAIN Other details as noted in HPI Constitutional: denies: fever Eyes: denies: eye pain ENT: denies: throat pain Respiratory: no symptoms reported Cardiovascular: denies: chest pain Endocrine: no symptoms reported Gastrointestinal: abdominal pain, nausea. denies: vomiting Genitourinary: denies: dysuria, hematuria Musculoskeletal: denies: back pain Neurological: denies: headache Physical Exam - Physical Exam Vital Signs: Vital Signs 02/18/19 23:29 Temperature 99.1 F Pulse Rate 104 H Respiratory 18 Rate Blood Pressure 118/69 O2 Sat by Pulse 99 Oximetry Laboratory Tests 02/19/19 02/19/19 02/19/19 06:35 06:41 06:41 WBC 4.1 L RBC 3.70 Hgb 12.5 Hct 36.9 MCV 100 H MCH 34 H MCHC 34 RDW 14.3 Plt Count 189 Lymph % (Auto) 49.9 H [place] % (Auto) 7.7 H Eos % (Auto) 2.3 Baso % (Auto) 0.5 Lymph # 2.0 [place] # 0.3 Eos # 0.1 Baso # 0.0 Seg Neutrophils % 39.6 L Seg Neutrophils # 1.6 L Sodium 141 Potassium 3.7 Chloride 106.2 Carbon Dioxide 26 Anion Gap 13 BUN 11 Creatinine 0.9 Estimated GFR > 60 BUN/Creatinine Ratio 12 Glucose 76 Calcium 8.5 Lipase 46 HCG, Qual Urine Color Yellow Urine Turbidity Clear Urine pH 6.0 Ur Specific [place] 1.012 Urine Protein <15 mg/dl Urine Glucose (UA) Neg Urine Ketones Neg Urine Blood Neg Urine Nitrite Neg Urine Bilirubin Neg Urine Urobilinogen < 2.0 Ur Leukocyte Esterase Neg Urine WBC (Auto) 1.0 Urine RBC (Auto) 1.0 U Epithel Cells (Auto) 4.0 Urine Bacteria (Auto) 1+ 02/19/19 06:41 WBC RBC Hgb Hct MCV MCH MCHC RDW Plt Count Lymph % (Auto) [place] % (Auto) Eos % (Auto) Baso % (Auto) Lymph # [place] # Eos # Baso # Seg Neutrophils % Seg Neutrophils # Sodium Potassium Chloride Carbon Dioxide Anion Gap BUN Creatinine Estimated GFR BUN/Creatinine Ratio Glucose Calcium Lipase HCG, Qual Negative Urine Color Urine Turbidity Urine pH Ur Specific [place] Urine Protein Urine Glucose (UA) Urine Ketones Urine Blood Urine Nitrite Urine Bilirubin Urine Urobilinogen Ur Leukocyte Esterase Urine WBC (Auto) Urine RBC (Auto) U Epithel Cells (Auto) Urine Bacteria (Auto) Physical Exam: GENERAL: The patient is well-developed well-nourished female lying on stretcher not appearing to be in acute distress. [] HEENT: Normocephalic. Atraumatic. Extraocular motions are intact. Patient has moist mucous membranes. NECK: Supple. Trachea midline CHEST/LUNGS: Clear to auscultation. There is no respiratory distress noted. HEART/CARDIOVASCULAR: Regular. There is no tachycardia. There is no gallop rub or murmur. ABDOMEN: Abdomen is soft and no tenderness is elicited with palpation with stethoscope. Patient complains of bilateral lower quadrant discomfort with palpation by hand. There is no rebound or guarding. Patient has normal bowel sounds. There is no abdominal distention. SKIN: There is no rash. There is no edema. There is no diaphoresis. NEURO: The patient is awake, alert, and oriented. The patient is cooperative. The patient has normal speech MUSCULOSKELETAL:here is no evidence of acute injury. ED Course Vital Signs 02/18/19 23:29 Temperature 99.1 F Pulse Rate 104 H Respiratory 18 Rate Blood Pressure 118/69 O2 Sat by Pulse 99 Oximetry ED Medical Decision Making - Lab Data Result diagrams: 02/19/19 06:41 02/19/19 06:41 Laboratory Tests 02/19/19 02/19/19 02/19/19 06:35 06:41 06:41 WBC 4.1 L RBC 3.70 Hgb 12.5 Hct 36.9 MCV 100 H MCH 34 H MCHC 34 RDW 14.3 Plt Count 189 Lymph % (Auto) 49.9 H [place] % (Auto) 7.7 H Eos % (Auto) 2.3 Baso % (Auto) 0.5 Lymph # 2.0 [place] # 0.3 Eos # 0.1 Baso # 0.0 Seg Neutrophils % 39.6 L Seg Neutrophils # 1.6 L Sodium 141 Potassium 3.7 Chloride 106.2 Carbon Dioxide 26 Anion Gap 13 BUN 11 Creatinine 0.9 Estimated GFR > 60 BUN/Creatinine Ratio 12 Glucose 76 Calcium 8.5 Lipase 46 HCG, Qual Urine Color Yellow Urine Turbidity Clear Urine pH 6.0 Ur Specific [place] 1.012 Urine Protein <15 mg/dl Urine Glucose (UA) Neg Urine Ketones Neg Urine Blood Neg Urine Nitrite Neg Urine Bilirubin Neg Urine Urobilinogen < 2.0 Ur Leukocyte Esterase Neg Urine WBC (Auto) 1.0 Urine RBC (Auto) 1.0 U Epithel Cells (Auto) 4.0 Urine Bacteria (Auto) 1+ 02/19/19 06:41 WBC RBC Hgb Hct MCV MCH MCHC RDW Plt Count Lymph % (Auto) [place] % (Auto) Eos % (Auto) Baso % (Auto) Lymph # [place] # Eos # Baso # Seg Neutrophils % Seg Neutrophils # Sodium Potassium Chloride Carbon Dioxide Anion Gap BUN Creatinine Estimated GFR BUN/Creatinine Ratio Glucose Calcium Lipase HCG, Qual Negative Urine Color Urine Turbidity Urine pH Ur Specific [place] Urine Protein Urine Glucose (UA) Urine Ketones Urine Blood Urine Nitrite Urine Bilirubin Urine Urobilinogen Ur Leukocyte Esterase Urine WBC (Auto) Urine RBC (Auto) U Epithel Cells (Auto) Urine Bacteria (Auto) - Differential Diagnosis endometriosis, UTI, Critical care attestation.: If time is entered above; I have spent that time in minutes in the direct care of this critically ill patient, excluding procedure time. ED Disposition Clinical Impression: Prescription drug abuse, Endometriosis, Lower abdominal pain Disposition: DC-01 TO HOME OR SELFCARE Is pt being admited?: No Does the pt Need Aspirin: No Condition: Stable Instructions: Abdominal Pain (ED) Additional Instructions: Make sure to follow up with the primary care physician as discussed. Take all your medications as you've been prescribed. If you have any worsening symptoms or develop new symptoms please return to ED immediately. Prescriptions: Ibuprofen [Motrin 800 MG tab] 800 mg PO Q8HR PRN #15 tablet PRN Reason: Pain , Severe (7-10) traMADol [Ultram] 50 mg PO Q6HR PRN #10 tablet PRN Reason: Pain Referrals: SUZETTE SWANSON MD [Primary Care Provider] - 3-5 Days SKIP MABRY MD [Staff Physician] - GRISEL (Dr. Mabry is an [employer]. Please follow-up with her to be established as a patient) [facility] [Outside] - GRISEL ([facility] has an [employer] on staff. Please follow up with them or another [employer] to be established as a patient) Forms: Accompanied Note, Work/School Release Form(ED) Time of Disposition: 07:42
[2019-02-19 06:51] LABS: Bacteria,Urine 1+ /HPF (Negative); Bilirubin,Urine NEG (Negative); Blood,Urine NEG (Negative); Color,Urine Yellow (Yellow); Protein,Urine <15 mg/dL mg/dL (Negative); Urobilinogen,Urine < 2.0 mg/dL (<2.0)
[2019-02-19 06:57] LABS: Basophils % (Auto) 0.5 % (0.0-1.8); Eosinophils # (Auto) 0.1 K/mm3 (0.0-0.4); Eosinophils % (Auto) 2.3 % (0.0-4.3); Hematocrit 36.9 % (30.3-42.9); Hemoglobin 12.5 gm/dl (10.1-14.3); Lymphocytes % (Auto) 49.9 % (13.4-35.0); Mean Corpuscular HGB Conc 34 % (30-34); Mean Corpuscular Volume 100 fl (79-97); Monocytes # (Auto) 0.3 K/mm3 (0.0-0.8); Monocytes % (Auto) 7.7 % (0.0-7.3); Platelet Count 189 K/mm3 (140-440); Red Cell Distribution Width 14.3 % (13.2-15.2)
[2019-02-19 07:07] LABS: BUN/Creatinine Ratio 12; Blood Urea Nitrogen 11 mg/dL (7-17); Calcium 8.5 mg/dL (8.4-10.2); Hemolysis Index 6
[2019-02-19 07:37] VITALS: BP 129/91
== END 2019-02-19 08:49 | disposition home or self-care (01) ==
LOC: ED 22:54
DX: N80.9 Endometriosis, unspecified (principal); F19.10 Other psychoactive substance abuse, uncomplicated; F41.9 Anxiety disorder, unspecified; F17.200 Nicotine dependence, unspecified, uncomplicated; Z79.899 Other long term (current) drug therapy
CPT/HCPCS: 36415; 80048; 81001; 83690; 84703; 85025; 99283

== ENCOUNTER 2019-07-16 02:25 | Emergency (ER) | payer MEDICAID ==
[2019-07-16 02:38] VITALS: BP 119/86
[2019-07-16 03:20] LABS: Basophils % (Auto) 0.4 % (0.0-1.8); Eosinophils # (Auto) 0.1 K/mm3 (0.0-0.4); Hematocrit 38.3 % (30.3-42.9); Hemoglobin 12.8 gm/dl (10.1-14.3); Lymphocytes # (Auto) 2.4 K/mm3 (1.2-5.4); Lymphocytes % (Auto) 49.9 % (13.4-35.0); Mean Corpuscular HGB Conc 33 % (30-34); Mean Corpuscular Volume 98 fl (79-97); Monocytes # (Auto) 0.4 K/mm3 (0.0-0.8); Platelet Count 173 K/mm3 (140-440); Red Blood Count 3.93 M/mm3 (3.65-5.03); Red Cell Distribution Width 13.8 % (13.2-15.2)
[2019-07-16 03:46] LABS: Alanine Aminotransferase 22 units/L (7-56); Albumin 4.6 g/dL (3.9-5); BUN/Creatinine Ratio 19; Blood Urea Nitrogen 13 mg/dL (7-17); Calcium 9.1 mg/dL (8.4-10.2); Hemolysis Index 4
[2019-07-16 04:46] LABS: Bilirubin,Urine NEG (Negative); Blood,Urine MOD (Negative); Color,Urine Yellow (Yellow); Mucus,Urine FEW /HPF; Protein,Urine <15 mg/dL mg/dL (Negative); Urobilinogen,Urine < 2.0 mg/dL (<2.0)
== END 2019-07-16 04:40 | disposition left against medical advice (07) ==
LOC: ED 02:25
DX: R10.9 Unspecified abdominal pain (principal); Z53.21 Procedure and treatment not carried out due to patient leaving prior to being seen by health care provider
CPT/HCPCS: 36415; 80053; 81001; 84703; 85025

== ENCOUNTER 2019-07-20 02:37 | Emergency (ER) | payer MEDICAID ==
[2019-07-20 04:02] LABS: Bacteria,Urine 1+ /HPF (Negative); Bilirubin,Urine NEG (Negative); Blood,Urine NEG (Negative); Color,Urine Straw (Yellow); Protein,Urine <15 mg/dL mg/dL (Negative); Urobilinogen,Urine < 2.0 mg/dL (<2.0); WBC,Urine < 1.0 /HPF (0.0-6.0)
[2019-07-20] MEDS ORDERED: ONDANSETRON 4 MG/2 ML INJ IV ONE (04:21)
[2019-07-20] MEDS ORDERED: MORPHINE 4 MG/1 ML INJ IV ONE (04:21)
[2019-07-20 04:22] LABS: HCG Qualitative,Urine Negative (Negative); RBC,Urine < 1.0 /HPF (0.0-6.0)
[2019-07-20 05:22] LABS: Basophils % (Auto) 0.2 % (0.0-1.8); Eosinophils % (Auto) 0.7 % (0.0-4.3); Hematocrit 36.5 % (30.3-42.9); Hemoglobin 12.2 gm/dl (10.1-14.3); Lymphocytes # (Auto) 1.9 K/mm3 (1.2-5.4); Lymphocytes % (Auto) 34.3 % (13.4-35.0); Mean Corpuscular HGB Conc 34 % (30-34); Mean Corpuscular Volume 97 fl (79-97); Monocytes # (Auto) 0.5 K/mm3 (0.0-0.8); Monocytes % (Auto) 8.2 % (0.0-7.3); Platelet Count 175 K/mm3 (140-440); Red Blood Count 3.76 M/mm3 (3.65-5.03); Red Cell Distribution Width 13.9 % (13.2-15.2)
[2019-07-20 05:45] LABS: Alanine Aminotransferase 18 units/L (7-56); Albumin 4.3 g/dL (3.9-5); BUN/Creatinine Ratio 17; Blood Urea Nitrogen 10 mg/dL (7-17); Calcium 8.7 mg/dL (8.4-10.2); Hemolysis Index 5
--- NOTE | 2019-07-20 05:51 | Emergency Department Report ---
ED Abdominal Pain HPI - General Chief Complaint: Abdominal Pain Stated Complaint: ABD PAIN Source: patient Mode of arrival: Ambulatory Limitations: No Limitations - History of Present Illness Initial Comments: Patient is a 34-year-old -[place] female with a history of chronic endometriosis with occasional glass presents to the ED with a complaint of acute onset and persistent severe diffuse low abdominal pain for the last 2 weeks with intermittent nausea. Patient denies dysuria, urinary frequency and urgency, vaginal bleeding, vaginal discharge, diarrhea, vomiting, chest pain or shortness of breath, low back pain, dyspareunia, dizziness, fever and chills. Patient states that her pain is characteristic of chronic endometriosis pain. Patient states that she usually takes Percocet 5 mg-325 mg and ibuprofen but that she had been out of all these medications over 2 weeks ago, and is yet to follow up with the [employer] physician in the next 1 week. MD Complaint: abdominal pain, other -: Sudden, week(s) (2) Location: suprapubic Radiation: suprapubic Migration to: no migration Severity: severe Severity scale (0 -10): 8 Quality: cramping, aching, sharp Consistency: constant Improves With: medication (narcotic pain medications) Worsens With: nothing Associated Symptoms: denies other symptoms, nausea, anorexia. denies: vomiting, diarrhea, fever, chills, constipation, dysuria, hematochezia, melena - Related Data Home Medications Medication Instructions Recorded Confirmed Last Taken oxyCODONE /ACETAMINOPHEN [Percocet 2 tab PO TID PRN 11/29/15 11/29/15 11/28/15 5/325] 2330 traMADoL [Ultram] 50 mg PO TID PRN 11/29/15 11/29/15 11/28/15 2330 Previous Rx's Medication Instructions Recorded Last Taken Type Amoxicillin [Trimox CAP] 500 mg PO Q8H 10 Days #30 capsule 07/30/18 Unknown Rx Chlorhexidine Mouthwash [Peridex] 15 ml MM BID #1 bottle 07/30/18 Unknown Rx traMADoL [Ultram] 50 mg PO Q6HR PRN #12 tablet 07/30/18 Unknown Rx metroNIDAZOLE [Metronidazole] 500 mg PO BID #14 tablet 08/26/18 Unknown Rx Tramadol HCl [Ultram] 50 mg PO Q6H PRN #12 tablet 09/23/18 Unknown Rx Ibuprofen [Motrin 800 MG tab] 800 mg PO Q8HR PRN #30 tablet 12/03/18 Unknown Rx traMADoL [Ultram] 50 mg PO Q6HR PRN #12 tablet 12/03/18 Unknown Rx Ibuprofen [Motrin 800 MG tab] 800 mg PO Q8HR PRN #15 tablet 02/19/19 Unknown Rx Ibuprofen [Motrin 600 MG tab] 600 mg PO Q8H #30 tablet 07/20/19 Unknown Rx Ondansetron [Zofran Odt] 4 mg PO Q6HR PRN #15 tab.rapdis 07/20/19 Unknown Rx traMADoL [Ultram 50 MG tab] 50 mg PO Q6HR PRN #10 tablet 07/20/19 Unknown Rx Allergies Allergy/AdvReac Type Severity Reaction Status Date / Time No Known Allergies Allergy Verified 12/02/18 20:10 ED Review of Systems ROS: Stated complaint: ABD PAIN Other details as noted in HPI Constitutional: denies: chills, fever Eyes: denies: eye pain, eye discharge, vision change ENT: denies: ear pain, throat pain Respiratory: denies: cough, shortness of breath, wheezing Cardiovascular: denies: chest pain, palpitations Endocrine: no symptoms reported Gastrointestinal: abdominal pain, nausea. denies: diarrhea Genitourinary: denies: urgency, dysuria, discharge Musculoskeletal: denies: back pain, joint swelling, arthralgia Skin: denies: rash, lesions Neurological: denies: headache, weakness, paresthesias Psychiatric: denies: anxiety, depression Hematological/Lymphatic: denies: easy bleeding, easy bruising ED Past Medical Hx - Past Medical History Previous Medical History?: Yes Hx Hypertension: No Hx Diabetes: No Hx Deep Vein Thrombosis: No Hx Renal Disease: No Hx Sickle Cell Disease: No Hx Seizures: Yes (a couple of years ago) Hx Psychiatric Treatment: Yes (ANXIETY) Hx Asthma: No Hx HIV: No Additional medical history: endometriosis, ovarian cysts, fibroids, mass to buttocks - Surgical History Past Surgical History?: Yes Additional Surgical History: uterine laproscopy, tubal ligation. x2 - Social History Smoking Status: Never Smoker Substance Use Type: None - Medications Home Medications: Home Medications Medication Instructions Recorded Confirmed Last Taken Type oxyCODONE /ACETAMINOPHEN [Percocet 2 tab PO TID PRN 11/29/15 11/29/15 11/28/15 History 5/325] 2330 traMADoL [Ultram] 50 mg PO TID PRN 11/29/15 11/29/15 11/28/15 History 2330 Amoxicillin [Trimox CAP] 500 mg PO Q8H 10 Days #30 capsule 07/30/18 Unknown Rx Chlorhexidine Mouthwash [Peridex] 15 ml MM BID #1 bottle 07/30/18 Unknown Rx traMADoL [Ultram] 50 mg PO Q6HR PRN #12 tablet 07/30/18 Unknown Rx metroNIDAZOLE [Metronidazole] 500 mg PO BID #14 tablet 08/26/18 Unknown Rx Tramadol HCl [Ultram] 50 mg PO Q6H PRN #12 tablet 09/23/18 Unknown Rx Ibuprofen [Motrin 800 MG tab] 800 mg PO Q8HR PRN #30 tablet 12/03/18 Unknown Rx traMADoL [Ultram] 50 mg PO Q6HR PRN #12 tablet 12/03/18 Unknown Rx Ibuprofen [Motrin 800 MG tab] 800 mg PO Q8HR PRN #15 tablet 02/19/19 Unknown Rx Ibuprofen [Motrin 600 MG tab] 600 mg PO Q8H #30 tablet 07/20/19 Unknown Rx Ondansetron [Zofran Odt] 4 mg PO Q6HR PRN #15 tab.rapdis 07/20/19 Unknown Rx traMADoL [Ultram 50 MG tab] 50 mg PO Q6HR PRN #10 tablet 07/20/19 Unknown Rx ED Physical Exam - General Limitations: No Limitations General appearance: alert, in no apparent distress - Head Head exam: Present: atraumatic, normocephalic, normal inspection - Eye Eye exam: Present: normal appearance, PERRL, EOMI Pupils: Present: normal accommodation - ENT ENT exam: Present: normal exam, normal orophraynx, mucous membranes moist, TM's normal bilaterally - Neck Neck exam: Present: normal inspection, full ROM. Absent: tenderness, meningismus, lymphadenopathy, thyromegaly - Respiratory Respiratory exam: Present: normal lung sounds bilaterally. Absent: respiratory distress, wheezes, rales, rhonchi, chest wall tenderness - Cardiovascular Cardiovascular Exam: Present: regular rate, normal rhythm, normal heart sounds. Absent: systolic murmur, diastolic murmur, rubs, gallop - GI/Abdominal GI/Abdominal exam: Present: soft, tenderness (suprapubic), normal bowel sounds. Absent: rebound, hyperactive bowel sounds, hypoactive bowel sounds, organomegaly - Extremities Exam Extremities exam: Present: normal inspection, full ROM, normal capillary refill - Back Exam Back exam: Present: normal inspection, full ROM. Absent: tenderness, CVA tenderness (L), muscle spasm, vertebral tenderness - Neurological Exam Neurological exam: Present: alert, oriented X3, CN II-XII intact, normal gait, reflexes normal - Psychiatric Psychiatric exam: Present: normal affect, normal mood - Skin Skin exam: Present: warm, dry, intact, normal color. Absent: rash ED Course Vital Signs 07/20/19 02:41 Temperature 98.5 F Pulse Rate 94 H Respiratory 18 Rate Blood Pressure 141/99 O2 Sat by Pulse 97 Oximetry ED Medical Decision Making - Lab Data Result diagrams: 07/20/19 04:40 07/20/19 04:40 - Medical Decision Making Patient is a 34-year-old -[place] female with a history of chronic endometriosis with occasional glass presents to the ED with a complaint of acute onset and persistent severe diffuse low abdominal pain for the last 2 weeks with intermittent nausea. In the ED, patient is alert and oriented 3 and is not in distress. Patient was treated for pain in the ED and also given antiemetics. L ab test results are reviewed and are on actionable. On reevaluation, patient's pain is well controlled with medications. The patient was discharged home on medications and advised to return to the ED immediately if symptoms get worse, otherwise follow-up with her NUTRITION A[employer] physician as previously scheduled. - Differential Diagnosis UTI; Endometriosis; Ovarian cyst; Kidney stones; PID; Fibroids Critical care attestation.: If time is entered above; I have spent that time in minutes in the direct care of this critically ill patient, excluding procedure time. ED Disposition Clinical Impression: Chronic endometritis, Chronic abdominal pain Disposition: - TO HOME OR SELFCARE Is pt being admited?: No Does the pt Need Aspirin: No Condition: Stable Instructions: Endometriosis (ED), Abdominal Pain (ED) Additional Instructions: Take medication and food, drink plenty of fluids and follow-up with your [employer] physician or primary care physician in 7-10 days for reevaluation. Return to the ED immediately if symptoms get worse. Prescriptions: Ibuprofen [Motrin 600 MG tab] 600 mg PO Q8H #30 tablet traMADoL [Ultram 50 MG tab] 50 mg PO Q6HR PRN #10 tablet PRN Reason: Pain Ondansetron [Zofran Odt] 4 mg PO Q6HR PRN #15 tab.rapdis PRN Reason: Nausea Referrals: SUZETTE SWANSON MD [Staff Physician] - 7-10 days Time of Disposition: 05:58 Print Language: CZECH
[2019-07-20 07:12] VITALS: BP 135/88
== END 2019-07-20 07:28 | disposition home or self-care (01) ==
LOC: ED 02:37
DX: N71.1 Chronic inflammatory disease of uterus (principal); F41.9 Anxiety disorder, unspecified; Z98.51 Tubal ligation status; Z79.899 Other long term (current) drug therapy
CPT/HCPCS: 36415; 80053; 81001; 81025; 83690; 85025; J2270; J2405

== ENCOUNTER 2019-07-20 07:19 | Emergency (ER) | payer MEDICAID ==
[2019-07-20 07:36] VITALS: BP 125/81
--- NOTE | 2019-07-20 09:30 | Emergency Department Report ---
ED Female HPI - General Chief complaint: Abdominal Pain Stated complaint: STOMACH PAIN/INDOMETIOSIS Time Seen by Provider: 07/20/19 08:52 Source: patient Mode of arrival: Ambulatory Limitations: No Limitations - History of Present Illness Initial comments: This is a 34-year-old -[place] female who presents to the emergency room with abdominal pain for 2 weeks. Patient seen in this emergency room earlier this morning and return for uncontrollable pain. Prior history of endometriosis. Patient states she believe this is endometriosis but pain is worse then usual. Patient states she had an appointment with [facility] in 3 weeks. Reports pain is unbearable. She also reports nausea and vomiting with associated symptoms. Denies back pain, urinary frequency, urgency, dysuria, chest pain, dizziness, or weakness. MD Complaint: vaginal bleeding, pelvic pain Onset/Timin -: week(s) Location: suprapubic Radiation: non-radiating Severity: severe Severity scale (0 -10): 10 Quality: sharp, aching Consistency: constant Improves with: none Worsens with: none Are you Now?: No Last Menstrual Period: 06/24/19 EDC: 03/30/20 Associated Symptoms: vaginal bleeding, abdominal pain, nausea/vomiting. denies: vaginal discharge, fever/chills, dysuria, hematuria, shortness of breath, syncope, weakness - Related Data Sexually active: Yes Home Medications Medication Instructions Recorded Confirmed Last Taken oxyCODONE /ACETAMINOPHEN [Percocet 2 tab PO TID PRN 11/29/15 11/29/15 11/28/15 5/325] 2330 traMADoL [Ultram] 50 mg PO TID PRN 11/29/15 11/29/15 11/28/15 2330 Previous Rx's Medication Instructions Recorded Last Taken Type Amoxicillin [Trimox CAP] 500 mg PO Q8H 10 Days #30 capsule 07/30/18 Unknown Rx Chlorhexidine Mouthwash [Peridex] 15 ml MM BID #1 bottle 07/30/18 Unknown Rx traMADoL [Ultram] 50 mg PO Q6HR PRN #12 tablet 07/30/18 Unknown Rx metroNIDAZOLE [Metronidazole] 500 mg PO BID #14 tablet 08/26/18 Unknown Rx Tramadol HCl [Ultram] 50 mg PO Q6H PRN #12 tablet 09/23/18 Unknown Rx Ibuprofen [Motrin 800 MG tab] 800 mg PO Q8HR PRN #30 tablet 12/03/18 Unknown Rx traMADoL [Ultram] 50 mg PO Q6HR PRN #12 tablet 12/03/18 Unknown Rx Ibuprofen [Motrin 800 MG tab] 800 mg PO Q8HR PRN #15 tablet 02/19/19 Unknown Rx Ibuprofen [Motrin 600 MG tab] 600 mg PO Q8H #30 tablet 07/20/19 Unknown Rx Ondansetron [Zofran Odt] 4 mg PO Q6HR PRN #15 tab.rapdis 07/20/19 Unknown Rx traMADoL [Ultram 50 MG tab] 50 mg PO Q6HR PRN #10 tablet 07/20/19 Unknown Rx Allergies Allergy/AdvReac Type Severity Reaction Status Date / Time No Known Allergies Allergy Verified 12/02/18 20:10 ED Review of Systems ROS: Stated complaint: STOMACH PAIN/INDOMETIOSIS Other details as noted in HPI Constitutional: denies: chills, fever Respiratory: denies: cough, shortness of breath, wheezing Cardiovascular: denies: chest pain, palpitations Gastrointestinal: abdominal pain, nausea, vomiting. denies: diarrhea Genitourinary: denies: urgency, dysuria, discharge Musculoskeletal: denies: back pain, joint swelling, arthralgia Skin: denies: rash, lesions Neurological: denies: headache, weakness, paresthesias Psychiatric: denies: anxiety, depression ED Past Medical Hx - Past Medical History Previous Medical History?: Yes Hx Hypertension: No Hx Diabetes: No Hx Deep Vein Thrombosis: No Hx Renal Disease: No Hx Sickle Cell Disease: No Hx Seizures: Yes Hx Psychiatric Treatment: Yes (ANXIETY) Hx Asthma: No Hx HIV: No Additional medical history: endometriosis, ovarian cysts, fibroids, mass to buttocks - Surgical History Past Surgical History?: Yes Additional Surgical History: uterine laproscopy, tubal ligation. x2 - Social History Smoking Status: Never Smoker Substance Use Type: None - Medications Home Medications: Home Medications Medication Instructions Recorded Confirmed Last Taken Type oxyCODONE /ACETAMINOPHEN [Percocet 2 tab PO TID PRN 11/29/15 11/29/15 11/28/15 History 5/325] 2330 traMADoL [Ultram] 50 mg PO TID PRN 11/29/15 11/29/15 11/28/15 History 2330 Amoxicillin [Trimox CAP] 500 mg PO Q8H 10 Days #30 capsule 07/30/18 Unknown Rx Chlorhexidine Mouthwash [Peridex] 15 ml MM BID #1 bottle 07/30/18 Unknown Rx traMADoL [Ultram] 50 mg PO Q6HR PRN #12 tablet 07/30/18 Unknown Rx metroNIDAZOLE [Metronidazole] 500 mg PO BID #14 tablet 08/26/18 Unknown Rx Tramadol HCl [Ultram] 50 mg PO Q6H PRN #12 tablet 09/23/18 Unknown Rx Ibuprofen [Motrin 800 MG tab] 800 mg PO Q8HR PRN #30 tablet 12/03/18 Unknown Rx traMADoL [Ultram] 50 mg PO Q6HR PRN #12 tablet 12/03/18 Unknown Rx Ibuprofen [Motrin 800 MG tab] 800 mg PO Q8HR PRN #15 tablet 02/19/19 Unknown Rx Ibuprofen [Motrin 600 MG tab] 600 mg PO Q8H #30 tablet 07/20/19 Unknown Rx Ondansetron [Zofran Odt] 4 mg PO Q6HR PRN #15 tab.rapdis 07/20/19 Unknown Rx traMADoL [Ultram 50 MG tab] 50 mg PO Q6HR PRN #10 tablet 07/20/19 Unknown Rx ED Physical Exam - General Limitations: No Limitations General appearance: alert, in no apparent distress - Respiratory Respiratory exam: Present: normal lung sounds bilaterally. Absent: respiratory distress - Cardiovascular Cardiovascular Exam: Present: regular rate, normal rhythm. Absent: systolic murmur, diastolic murmur, rubs, gallop - GI/Abdominal GI/Abdominal exam: Present: soft, tenderness (suprapubic), normal bowel sounds. Absent: distended, guarding, rebound, rigid, organomegaly - Back Exam Back exam: Absent: CVA tenderness (R), CVA tenderness (L) - Neurological Exam Neurological exam: Present: alert, oriented X3, normal gait - Psychiatric Psychiatric exam: Present: normal affect, normal mood - Skin Skin exam: Present: warm, dry, intact, normal color. Absent: rash ED Course Vital Signs 07/20/19 07:34 Temperature 98 F Pulse Rate 85 Respiratory 16 Rate Blood Pressure 125/81 O2 Sat by Pulse 98 Oximetry ED Medical Decision Making - Radiology Data Radiology results: report reviewed Pelvic ultrasound INDICATION: Pelvic pain FINDINGS: Transabdominal and transvaginal imaging is performed. Uterus measures 7.5 cm in length. Endometrial stripe measures 3 mm. The uterine echotexture is heterogeneous. No discrete mass lesion is seen. The right ovary measures 2.9 cm in length and the left ovary measures 2.3 cm in length. The ovaries are unremarkable. No free fluid is seen. No adnexal masses are seen. IMPRESSION: No acute abnormality is seen. Free fluid is seen. No adnexal masses are seen. The ovaries are unremarkable. - Medical Decision Making This is a 34-year-old -[place] female who presents to the emergency room with pelvic pain. Vitals are stable and patient in no acute distress. Patient seen earlier today with normal labs. A pelvic ultrasound was obtained with the following findings No acute abnormality is seen. Free fluid is seen. No adnexal masses are seen. The ovaries are unremarkable. Analgesics given. Patient prescribed pain medication and antiemetic with prior visit. Instructed to start taking medication prescribed. Follow-up with gynecology. Patient discharged home stable. Critical care attestation.: If time is entered above; I have spent that time in minutes in the direct care o f this critically ill patient, excluding procedure time. ED Disposition Clinical Impression: Chronic abdominal pain, Chronic endometritis Disposition: - TO HOME OR SELFCARE Is pt being admited?: No Condition: Stable Instructions: Abdominal Pain (ED) Referrals: [facility] [Provider Group] - 3-5 Days [facility]Provider [facility]] - 3-5 Days [facility] [Provider Group] - 3-5 Days Forms: Work/School Release Form(ED) Time of Disposition: 12:13
[2019-07-20] MEDS ORDERED: HYDROcodone/ACETAMINOPHEN 7.5-325MG TAB PO ONE (09:33)
--- NOTE | 2019-07-20 12:00 | Ultrasound Report ---
Pelvic ultrasound INDICATION: Pelvic pain FINDINGS: Transabdominal and transvaginal imaging is performed. Uterus measures 7.5 cm in length. Endometrial stripe measures 3 mm. The uterine echotexture is hetero geneous. No discrete mass lesion is seen. The right ovary measures 2.9 cm in length and the left ovary measures 2.3 cm in length. The ovaries a re unremarkable. No free fluid is seen. No adnexal masses are seen. IMPRESSION: No acute abnormality is seen. Free fluid is seen. No adnexal masses are seen. The ovaries are unremar kable. Signer Name: Mickey Zepeda MD Signed: 07/20/2019 9:55 AM Workstation Name: [id number]
== END 2019-07-20 12:21 | disposition home or self-care (01) ==
LOC: ED 07:19
DX: N71.1 Chronic inflammatory disease of uterus (principal); F41.9 Anxiety disorder, unspecified; Z79.899 Other long term (current) drug therapy
CPT/HCPCS: 36415; 76830; 76856; 80053; 81001; 81025; 83690; 85025; 99283; J2270; J2405

== ENCOUNTER 2021-11-17 23:35 | Emergency (ER) | payer MEDICAID ==
[2021-11-18 00:59] LABS: Basophils % (Auto) 0.3 % (0.0-1.8); Eosinophils % (Auto) 0.3 % (0.0-4.3); Hemoglobin 13.1 gm/dl (10.1-14.3); Lymphocytes # (Auto) 0.7 K/mm3 (1.2-5.4); Lymphocytes % (Auto) 20.4 % (13.4-35.0); Mean Corpuscular HGB Conc 34 % (30-34); Mean Corpuscular Volume 100 fl (79-97); Monocytes # (Auto) 0.3 K/mm3 (0.0-0.8); Monocytes % (Auto) 10.7 % (0.0-7.3); Platelet Count 151 K/mm3 (140-440); Red Blood Count 3.92 M/mm3 (3.65-5.03)
[2021-11-18 01:14] LABS: Blood Urea Nitrogen 8 mg/dL (7-17); Calcium 9.7 mg/dL (8.4-10.2); Hemolysis Index 8
[2021-11-18 01:18] LABS: BUN/Creatinine Ratio 16
[2021-11-18] MEDS ORDERED: LORazepam 1 MG TAB PO ONE (07:54)
[2021-11-18] MEDS ORDERED: ONDANSETRON 4 MG ODT TAB PO ONE (07:54)
[2021-11-18 08:30] LABS: HCG Qualitative,Urine Negative (Negative)
[2021-11-18 08:34] LABS: Bilirubin,Urine NEG (Negative); Blood,Urine NEG (Negative); Color,Urine Yellow (Yellow); Mucus,Urine 1+ /HPF; Protein,Urine <15 mg/dL mg/dL (Negative)
[2021-11-18 08:41] LABS: Amphetamine Screen,Urine Negative; Benzodiazepines Screen,Urine Negative; Cocaine Screen,Urine Negative; Methadone Screen,Urine Negative; Opiate Screen,Urine Negative
--- NOTE | 2021-11-18 09:05 | Emergency Department Report ---
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 She states that for some time now, she has been using fentanyl and Percocet daily. She states that she generally takes several pills every day and her last dose was yesterday morning. She states that she has been to detox previously but failed and is now wanting to go back because she wants to get her life back together. Patient denies SI, HI, muscle aches, vomiting, leg cramps, dizziness, abdominal pain, chest pain, palpitations, and shortness of breath. Patient states that she is anxious about the process and having some intermittent nausea. -: Gradual Reason for Medical Clearance: psychiatric condition (Admission to [facility] for detox for fentanyl) Alledged Intoxication: No Traumatic Symptoms: denies traumatic injury Associated Symptoms: malaise. denies: chest pain, shortness of breath, palpitations, diaphoresis, confusion, cough, fever/chills, headaches, anorexia, nausea/vomiting, rash, seizure, syncope, weakness Treatments Prior to Arrival: none Home medications: Home Medications Medication Instructions Recorded Confirmed Last Taken oxyCODONE /ACETAMINOPHEN [Percocet 2 tab PO TID PRN 11/29/15 11/29/15 11/28/15 5/325] 2330 traMADoL [Ultram] 50 mg PO TID PRN 11/29/15 11/29/15 11/28/15 2330 Previous Rx's Medication Instructions Recorded Last Taken Type Amoxicillin [Trimox CAP] 500 mg PO Q8H 10 Days #30 capsule 07/30/18 Unknown Rx Chlorhexidine Mouthwash [Peridex] 15 ml MM BID #1 bottle 07/30/18 Unknown Rx traMADoL [Ultram] 50 mg PO Q6HR PRN #12 tablet 07/30/18 Unknown Rx metroNIDAZOLE [Metronidazole] 500 mg PO BID #14 tablet 08/26/18 Unknown Rx Tramadol HCl [Ultram] 50 mg PO Q6H PRN #12 tablet 09/23/18 Unknown Rx Ibuprofen [Motrin 800 MG tab] 800 mg PO Q8HR PRN #30 tablet 12/03/18 Unknown Rx traMADoL [Ultram] 50 mg PO Q6HR PRN #12 tablet 12/03/18 Unknown Rx Ibuprofen [Motrin 800 MG tab] 800 mg PO Q8HR PRN #15 tablet 02/19/19 Unknown Rx Ibuprofen [Motrin 600 MG tab] 600 mg PO Q8H #30 tablet 07/20/19 Unknown Rx Ondansetron [Zofran Odt] 4 mg PO Q6HR PRN #15 tab.rapdis 07/20/19 Unknown Rx traMADoL [Ultram 50 MG tab] 50 mg PO Q6HR PRN #10 tablet 07/20/19 Unknown Rx Allergies/Adverse reactions: Allergies Allergy/AdvReac Type Severity Reaction Status Date / Time No Known Allergies Allergy Verified 12/02/18 20:10 ED Review of Systems ROS: Stated complaint: DRUGS Other details as noted in HPI Comment: All other systems reviewed and negative Constitutional: malaise. denies: chills, fever Eyes: denies: vision change ENT: denies: ear pain, throat pain, congestion Respiratory: denies: cough, orthopnea, shortness of breath, SOB with exertion, SOB at rest, stridor, wheezing Cardiovascular: denies: chest pain, palpitations, dyspnea on exertion, orthopnea, edema, syncope, paroxysmal nocturnal dyspnea Gastrointestinal: nausea. denies: abdominal pain, vomiting, diarrhea, hematemesis, melena, hematochezia Genitourinary: denies: urgency, dysuria, frequency, hematuria, discharge, abnormal menses Musculoskeletal: denies: back pain Skin: denies: rash, lesions Neurological: denies: headache, weakness, numbness, paresthesias, confusion, abnormal gait, vertigo Psychiatric: anxiety. denies: auditory hallucinations, visual hallucinations, homicidal thoughts, suicidal thoughts ED Past Medical Hx - Past Medical History Hx Hypertension: No Hx Diabetes: No Hx Deep Vein Thrombosis: No Hx Renal Disease: No Hx Sickle Cell Disease: No Hx Seizures: Yes Hx Psychiatric Treatment: Yes (ANXIETY) Hx Asthma: No Hx HIV: No Additional medical history: endometriosis, ovarian cysts, fibroids, mass to buttocks - Surgical History Additional Surgical History: uterine laproscopy, tubal ligation. x2 - Social History Smoking Status: Never Smoker Substance Use Type: None - Medications Home Medications: Home Medications Medication Instructions Recorded Confirmed Last Taken Type oxyCODONE /ACETAMINOPHEN [Percocet 2 tab PO TID PRN 11/29/15 11/29/15 11/28/15 History 5/325] 2330 traMADoL [Ultram] 50 mg PO TID PRN 11/29/15 11/29/15 11/28/15 History 2330 Amoxicillin [Trimox CAP] 500 mg PO Q8H 10 Days #30 capsule 07/30/18 Unknown Rx Chlorhexidine Mouthwash [Peridex] 15 ml MM BID #1 bottle 07/30/18 Unknown Rx traMADoL [Ultram] 50 mg PO Q6HR PRN #12 tablet 07/30/18 Unknown Rx metroNIDAZOLE [Metronidazole] 500 mg PO BID #14 tablet 08/26/18 Unknown Rx Tramadol HCl [Ultram] 50 mg PO Q6H PRN #12 tablet 09/23/18 Unknown Rx Ibuprofen [Motrin 800 MG tab] 800 mg PO Q8HR PRN #30 tablet 12/03/18 Unknown Rx traMADoL [Ultram] 50 mg PO Q6HR PRN #12 tablet 12/03/18 Unknown Rx Ibuprofen [Motrin 800 MG tab] 800 mg PO Q8HR PRN #15 tablet 02/19/19 Unknown Rx Ibuprofen [Motrin 600 MG tab] 600 mg PO Q8H #30 tablet 07/20/19 Unknown Rx Ondansetron [Zofran Odt] 4 mg PO Q6HR PRN #15 tab.rapdis 07/20/19 Unknown Rx traMADoL [Ultram 50 MG tab] 50 mg PO Q6HR PRN #10 tablet 07/20/19 Unknown Rx ED Physical Exam - General Limitations: No Limitations General appearance: alert, in no apparent distress - Head Head exam: Present: atraumatic, normocephalic - Eye Eye exam: Present: normal appearance, PERRL, EOMI. Absent: scleral icterus, conjunctival injection, periorbital swelling, periorbital tenderness - Neck Neck exam: Present: normal inspection, full ROM. Absent: tenderness, lymphadenopathy - Respiratory Respiratory exam: Present: normal lung sounds bilaterally. Absent: respiratory distress, wheezes, rales, rhonchi, stridor, chest wall tenderness - Cardiovascular Cardiovascular Exam: Present: regular rate, normal heart sounds - GI/Abdominal GI/Abdominal exam: Present: soft, normal bowel sounds. Absent: distended, te nderness, guarding, rebound, rigid - Extremities Exam Extremities exam: Present: normal inspection - Back Exam Back exam: Present: normal inspection. Absent: tenderness, CVA tenderness (R), CVA tenderness (L), vertebral tenderness - Neurological Exam Neurological exam: Present: alert, oriented X3, CN II-XII intact, normal gait, reflexes normal - Psychiatric Psychiatric exam: Present: anxious. 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 She states that for some time now, she has been using fentanyl and Percocet daily. She states that she generally takes several pills every day and her last dose was yesterday morning. She states that she has been to detox previously but failed and is now wanting to go back because she wants to get her life back together. Patient denies SI, HI, muscle aches, vomiting, leg cramps, dizziness, abdominal pain, chest pain, palpitations, and shortness of breath. Patient states that she is anxious about the process and having some intermittent nausea. No gross abnormalities noted on exam. Patient stating that she is nervous and anxious to get over to [facility]. No sweating, shivering, tremors, or active vomiting noted. Patient denies myalgias and vital signs are within normal limits, but patient does state that she is just exhausted.. No acute distress noted and patient cleared to follow-up at [facility] as planned. She is advised to return to the emergency department for any concerning symptoms or if she cannot get admitted to [facility] and starts to feel worse. She verbalized understanding of and agreement with plan of care. ED Disposition Clinical Impression: Medical clearance for psychiatric admission Disposition: HOME / SELF CARE / HOMELESS Is pt being admited?: No Does the pt Need Aspirin: No Condition: Stable Instructions: Medical Screening Exam Additional Instructions: Patient medically clear for admission to psychiatric facility. Referrals: [facility]IMARY [facility]ARE, [Primary Care Provider] - 3-5 Days Time of Disposition: 09:04
[2021-11-18 09:10] LABS: Cannabinoid Screen,Urine Positive
[2021-11-18 09:32] VITALS: BP 134/70
== END 2021-11-18 09:30 | disposition home or self-care (01) ==
LOC: ED 23:35
DX: Z13.30 Encounter for screening examination for mental health and behavioral disorders, unspecified (principal); R56.9 Unspecified convulsions; Z79.899 Other long term (current) drug therapy
CPT/HCPCS: 36415; 80048; 80307; 80320; 81001; 81025; 85025; 99283; J3490; G0480; Q0162